=== PATIENT | male | born 1985 | race American Indian/Alaskan Native ===

== ENCOUNTER 2017-04-16 12:58 | Emergency (ER) | payer SELFPAY | END 2017-04-16 13:00 | disposition left against medical advice (07) | LOC: ED 12:58 | DX: M54.9 Dorsalgia, unspecified (principal); Z53.21 Procedure and treatment not carried out due to patient leaving prior to being seen by health care provider ==

== ENCOUNTER 2020-04-13 13:41 | Emergency (ER) | payer SELFPAY ==
--- NOTE | 2020-04-13 14:02 | Event Note ---
ED Screening Note Date of service: 04/13/20 Time: 14:01 ED Screening Note: The patient was evaluated in the emergency department for symptoms described in the history of present illness. He/she was evaluated in the context of the global COVID-19 pandemic, which necessitated consideration that the patient might be at risk for infection with the virus that causes COVID-19. Institutional protocols and algorithms that pertain to the evaluation of patients at risk for COVID-19 are in a state of rapid change based on information released by regulatory bodies including the CDC and federal and state organizations. These policies and algorithms were followed during the patient's care in the emergency department. Please note that these policies, procedures and recommendations changed on a rapid basis. 34-year-old -[place] male presents to the emergency room stating he needs a refill on his Lasix. Patient states that he has shortness of breath worse with lying down. Shortness of breath worse with exertion. Sometimes will have felt like he has fluid around his heart. Patient has a history of CHF severe hypertension homelessness. This initial assessment/diagnostic orders/clinical plan/treatment(s) is/are subject to change based on patients health status, clinical progression and re- assessment by fellow clinical providers in the ED. Further treatment and workup at subsequent clinical providers discretion. Patient/guardian urged not to elope from the ED as their condition may be serious if not clinically assessed and managed. Initial orders include:
[2020-04-13 14:05] VITALS: BP 166/128
[2020-04-13 15:53] LABS: Basophils # (Auto) 0.1 K/mm3 (0.0-0.1); Eosinophils % (Auto) 0.6 % (0.0-4.3); Hematocrit 40.2 % (35.5-45.6); Hemoglobin 12.7 gm/dl (11.8-15.2); Lymphocytes # (Auto) 1.3 K/mm3 (1.2-5.4); Lymphocytes % (Auto) 19.9 % (13.4-35.0); Mean Corpuscular HGB Conc 32 % (32-34); Mean Corpuscular Volume 80 fl (84-94); Monocytes # (Auto) 0.4 K/mm3 (0.0-0.8); Monocytes % (Auto) 6.6 % (0.0-7.3); Platelet Count 165 K/mm3 (140-440); Red Blood Count 5.02 M/mm3 (3.65-5.03)
[2020-04-13 16:07] LABS: Creatine Kinase MB 3.8 ng/mL (0.0-4.0)
[2020-04-13 16:09] LABS: INR 1.26 (0.87-1.13)
[2020-04-13 16:10] LABS: Partial Thromboplastin Time 28.4 Sec. (24.2-36.6)
[2020-04-13 16:12] LABS: BUN/Creatinine Ratio 8; Blood Urea Nitrogen 10 mg/dL (9-20); Calcium 9.1 mg/dL (8.4-10.2); Hemolysis Index 75
--- NOTE | 2020-04-13 16:28 | XRay Report ---
. XR chest 1V ap INDICATION / CLINICAL INFORMATION: hypertension COMPARISON: None available. FINDINGS: SUPPORT DEVICES: There is a loop recorder overlying the left chest. HEART / MEDIASTINUM: Cardiac silhouette is mildly prominent. LUNGS / PLEURA: Small lung volumes. Blunting left costophrenic sulcus. No pneumothorax. ADDITIONAL FINDINGS: No significant additional findings. IMPRESSION: 1. Mild cardiomegaly with a possible small left pleural effusion. Signer Name: Ck Baptiste MD Signed: 04/13/2020 4:23 PM Workstation Name: [id number]
--- NOTE | 2020-04-13 16:33 | Emergency Department Report ---
ED General Adult HPI - General Chief complaint: Dyspnea/Respdistress Stated complaint: MEDICATION REFILL Time Seen by Provider: 04/13/20 14:06 Source: patient Mode of arrival: Ambulatory Limitations: No Limitations - History of Present Illness Initial comments: This is a rather cooperative 34-year-old man who presented to the emergency department for dyspnea at rest on exertion and orthopnea. He is noncompliant with medical follow-up. Apparently he had an AICD placed at [facility] 2 months ago upon a 1 week hospitalization. He arrives at the hospital ambulatory demanding that we renew his Lasix. He initially did not allow blood draw. He never would allow an x-ray to be done. He did do an EKG which was of concern for possible hyperkalemia, atrial tachycardia and 2-1 block. He was found to be severely hypertensive. Patient claimed that he was taking his amlodipine. He repeatedly stated that he just wanted a prescription for Lasix and would leave. He was brought to my attention by triage nurse. I ordered an x-ray which he repeatedly refused. He refused to be placed on the monitor. Labs were ordered while the patient was in the waiting room. However the patient left has been returned. He admitted to the nurse that he was a heroin abuser. His behavior was erratic and uncooperative as well as consistent with possible substance abuse. However he was judged to have adequate mental capacity to refuse medical care. I did primary counselor the patient as to the need for laboratory testing and further evaluation to include x-ray as well as intravenous medications. He declined those interventions. He was awake alert and oriented x3 fully ambulatory. He did not even allow the nurse to feed his vital signs. -: days(s) Associated Symptoms: denies other symptoms, shortness of breath - Related Data Previous Rx's Medication Instructions Recorded Last Taken Type Furosemide [Lasix] 20 mg PO QDAY #30 tablet 04/13/20 Unknown Rx amLODIPine 5 mg PO DAILY #30 tab 04/13/20 Unknown Rx Allergies Allergy/AdvReac Type Severity Reaction Status Date / Time No Known Allergies Allergy Unverified 04/13/20 13:54 ED Review of Systems ROS: Stated complaint: MEDICATION REFILL Other details as noted in HPI Comment: Unobtainable due to pts medical conditions Constitutional: denies: chills, fever Eyes: denies: vision change ENT: denies: throat pain, epistaxis Respiratory: shortness of breath, SOB with exertion. denies: cough, wheezing Cardiovascular: denies: chest pain, palpitations Endocrine: no symptoms reported Gastrointestinal: denies: abdominal pain, nausea, diarrhea Genitourinary: denies: urgency, dysuria Musculoskeletal: denies: back pain, arthralgia Skin: denies: rash, lesions Neurological: denies: headache, weakness, paresthesias Psychiatric: denies: anxiety, depression Hematological/Lymphatic: denies: easy bleeding, easy bruising ED Past Medical Hx - Past Medical History Previous Medical History?: Yes Hx Hypertension: Yes Hx Congestive Heart Failure: Yes Hx Renal Disease: Yes (HD 2009) Additional medical history: Tricuspid valve damage - Surgical History Past Surgical History?: Yes Hx Internal Defibrillator: Yes Additional Surgical History: Pacemaker removed. AICD placement? - Social History Smoking Status: Current Every Day Smoker Substance Use Type: Alcohol, Heroin, Marijuana - Medications Home Medications: Home Medications Medication Instructions Recorded Confirmed Last Taken Type Furosemide [Lasix] 20 mg PO QDAY #30 tablet 04/13/20 Unknown Rx amLODIPine 5 mg PO DAILY #30 tab 04/13/20 Unknown Rx ED Physical Exam - General Limitations: Physical Limitation, Other (Poor patient cooperation) General appearance: alert, in no apparent distress - Head Head exam: Present: atraumatic, normocephalic - Eye Eye exam: Present: periorbital swelling (Periorbital edema). Absent: scleral icterus - ENT ENT exam: Present: mucous membranes moist - Neck Neck exam: Present: normal inspection. Absent: meningismus - Respiratory Respiratory exam: Present: normal lung sounds bilaterally. Absent: respiratory distress - Cardiovascular Cardiovascular Exam: Present: tachycardia - GI/Abdominal GI/Abdominal exam: Present: soft, normal bowel sounds. Absent: distended, tenderness, guarding - Extremities Exam Extremities exam: Present: other (1+ ankle edema bilaterally) - Neurological Exam Neurological exam: Present: CN II-XII intact, normal gait. Absent: motor sensory deficit - Skin Skin exam: Present: warm, dry, intact, normal color. Absent: rash ED Course Vital Signs 04/13/20 13:56 Temperature 98.4 F Pulse Rate 117 H Respiratory 16 Rate Blood Pressure 166/128 O2 Sat by Pulse 100 Oximetry ED Medical Decision Making - Lab Data Result diagrams: 04/13/20 15:35 04/13/20 15:35 Laboratory Results - last 24 hr 04/13/20 04/13/20 04/13/20 15:35 15:35 15:35 WBC 6.4 RBC 5.02 Hgb 12.7 Hct 40.2 MCV 80 L MCH 25 L MCHC 32 RDW 20.0 H Plt Count 165 Lymph % (Auto) 19.9 [place] % (Auto) 6.6 Eos % (Auto) 0.6 Baso % (Auto) 1.0 Lymph # (Auto) 1.3 [place] # (Auto) 0.4 Eos # (Auto) 0.0 Baso # (Auto) 0.1 Seg Neutrophils % 71.9 H Seg Neutrophils # 4.6 PT INR APTT Sodium Potassium Chloride Carbon Dioxide Anion Gap BUN Creatinine Estimated GFR BUN/Creatinine Ratio Glucose Calcium Total Creatine Kinase 125 CK-MB (CK-2) 3.8 CK-MB (CK-2) Rel Index 3.0 Troponin T < 0.010 NT-Pro-B Natriuret Pep 4096 H 04/13/20 04/13/20 15:35 15:35 WBC RBC Hgb Hct MCV MCH MCHC RDW Plt Count Lymph % (Auto) [place] % (Auto) Eos % (Auto) Baso % (Auto) Lymph # (Auto) [place] # (Auto) Eos # (Auto) Baso # (Auto) Seg Neutrophils % Seg Neutrophils # PT 16.0 H INR 1.26 H APTT 28.4 Sodium 134 L Potassium 4.5 Chloride 96.7 L Carbon Dioxide 20 L Anion Gap 22 BUN 10 Creatinine 1.3 Estimated GFR > 60 BUN/Creatinine Ratio 8 Glucose 105 H Calcium 9.1 Total Creatine Kinase CK-MB (CK-2) CK-MB (CK-2) Rel Index Troponin T NT-Pro-B Natriuret Pep Critical care attestation.: If time is entered above; I have spent that time in minutes in the direct care of this critically ill patient, excluding procedure time. ED Disposition Clinical Impression: Uncontrolled hypertension, Atrial tachycardia Acute on chronic congestive heart failure Qualifiers: Heart failure type: unspecified Qualified Code(s): I50.9 - Heart failure, unspecified Disposition: -07 LEFT AGAINST MED ADVICE Is pt being admited?: No Does the pt Need Aspirin: No Condition: Stable Instructions: Heart Failure (ED), Hypertension (ED) Additional Instructions: You had an abnormal heart rhythm. Your medical care was incomplete. You should take your medicine as prescribed and follow-up with your cardiology clinic at [facility] as soon as possible. I recommend additional emergency care which would require an IV and medication as well as an x-ray. You have refused these things. He was signed out AGAINST MEDICAL ADVICE. Prescriptions: amLODIPine 5 mg PO DAILY #30 tab Furosemide [Lasix] 20 mg PO QDAY #30 tablet Referrals: PRIMARY CARE, [Primary Care Provider] - 3-5 Days [facility] [Provider Group] - 24 Hours Forms: AMA Form Time of Disposition: 16:35
== END 2020-04-13 17:00 | disposition left against medical advice (07) ==
LOC: ED 13:41
DX: I11.0 Hypertensive heart disease with heart failure (principal); I50.9 Heart failure, unspecified; I47.1 Supraventricular tachycardia; F17.200 Nicotine dependence, unspecified, uncomplicated; F12.90 Cannabis use, unspecified, uncomplicated; F11.90 Opioid use, unspecified, uncomplicated; Z95.810 Presence of automatic (implantable) cardiac defibrillator; Z79.899 Other long term (current) drug therapy; Z76.0 Encounter for issue of repeat prescription
CPT/HCPCS: 36415; 71045; 80048; 82550; 82553; 83880; 84484; 85025; 85610; 85730; 93005

== ENCOUNTER 2020-05-10 16:48 | Observation (INO) | payer SELFPAY ==
--- NOTE | 2020-05-10 17:08 | Event Note ---
ED Screening Note ED Screening Note: Patient states that he has been out of his medications for 2 weeks He has associated shortness of breath, bilateral lower extremity edema, palpitations He denies any chest pain He states that he has a history of CHF States that he sees a plant engineering manager at [place] He states that he missed a couple of his appointments and that is why he does not have any medications Patient is tachycardic with elevated blood pressure Patient states that he just wanted a refill of his medications and did not want to have any test done Advised patient that he would need to sign out AGAINST MEDICAL ADVICE if he did not want to have a full medical evaluation Given his history and his vital signs, patient cannot be discharged with a refill of his medications He needs to have a work-up to rule out an emergent condition That appears that he is retaining fluid in his legs Patient states that he will stay and have the work-up done This initial assessment/diagnostic orders/clinical plan/treatment(s) is/are subject to change based on patients health status, clinical progression and re- assessment by fellow clinical providers in the ED. Further treatment and workup at subsequent clinical providers discretion. Patient/guardian urged not to elope from the ED as their condition may be serious if not clinically assessed and managed. Initial orders include: Labs, chest x-ray, EKG Patient be sent to the main ED for evaluation by
--- NOTE | 2020-05-10 17:31 | XRay Report ---
CHEST 2 VIEWS INDICATION / CLINICAL INFORMATION: SOB. COMPARISON: Chest x-ray 04/13/2020 FINDINGS: SUPPORT DEVICES: Leadless cardiac pacemaker, unchanged HEART / MEDIASTINUM: Cardiomegaly again noted with pulmonary venous hypertension LUNGS / PLEURA: No significant pulmonary or pleural abnormality. No pneumothorax. ADDITIONAL FINDINGS: No significant additional findings. IMPRESSION: 1. Cardiomegaly with pulmonary venous hypertension Signer Name: Donald Santoro MD Signed: 05/10/2020 5:27 PM Workstation Name: [id number]
[2020-05-10 17:59] LABS: Basophils % (Auto) 0.6 % (0.0-1.8); Eosinophils % (Auto) 0.4 % (0.0-4.3); Hematocrit 36.8 % (35.5-45.6); Hemoglobin 11.6 gm/dl (11.8-15.2); Lymphocytes # (Auto) 1.3 K/mm3 (1.2-5.4); Lymphocytes % (Auto) 18.2 % (13.4-35.0); Mean Corpuscular HGB Conc 32 % (32-34); Mean Corpuscular Volume 81 fl (84-94); Monocytes # (Auto) 0.7 K/mm3 (0.0-0.8); Monocytes % (Auto) 9.7 % (0.0-7.3); Platelet Count 155 K/mm3 (140-440); Red Blood Count 4.55 M/mm3 (3.65-5.03)
[2020-05-10 18:01] LABS: Alanine Aminotransferase 13 units/L (7-56); Albumin 3.1 g/dL (3.9-5); BUN/Creatinine Ratio 8; Blood Urea Nitrogen 11 mg/dL (9-20); Calcium 8.7 mg/dL (8.4-10.2); Hemolysis Index 35
[2020-05-11] MEDS ORDERED: FUROSEMIDE 40 MG/4 ML INJ IV ONE ×2 (00:08→04:04)
[2020-05-11] MEDS ORDERED: NITROGLYCERIN 2% OINT 1 GM TP ONE (00:09)
[2020-05-11] MEDS ORDERED: cloNIDine 0.2 MG TAB PO ONE (01:26)
[2020-05-11] MEDS ORDERED: FUROSEMIDE 20 MG TAB PO ONE (01:26)
--- NOTE | 2020-05-11 02:15 | Emergency Department Report ---
ED General Adult HPI - General Chief complaint: Dyspnea/Respdistress Stated complaint: BREATHING PROBLEM Time Seen by Provider: 05/11/20 00:04 Source: patient Mode of arrival: Ambulatory Limitations: No Limitations - History of Present Illness Initial comments: Patient is a 34-year-old F Scottish male with hypertension and congestive heart failure who is presenting with shortness of breath with exertion. Patient states he has been noncompliant with his medications for the past several weeks. Patient ran out. Patient states that with exertion and feels palpitations and gets very short of breath. With rest he feels much improved. There is no chest pain. Denies nausea vomiting diaphoresis fevers chills cough cold or congestion. Patient does have orthopnea when lying flat. - Related Data Previous Rx's Medication Instructions Recorded Last Taken Type Furosemide [Lasix] 20 mg PO QDAY #30 tablet 04/13/20 Unknown Rx amLODIPine 5 mg PO DAILY #30 tab 04/13/20 Unknown Rx Allergies Allergy/AdvReac Type Severity Reaction Status Date / Time No Known Allergies Allergy Unverified 04/13/20 13:54 ED Review of Systems ROS: Stated complaint: BREATHING PROBLEM Other details as noted in HPI Comment: All other systems reviewed and negative ED Past Medical Hx - Past Medical History Previous Medical History?: Yes Hx Hypertension: Yes Hx Congestive Heart Failure: Yes Hx Renal Disease: Yes (HD 2009) Additional medical history: Tricuspid valve damage - Surgical History Past Surgical History?: Yes Hx Internal Defibrillator: Yes Additional Surgical History: Pacemaker removed. AICD placement? - Social History Smoking Status: Current Every Day Smoker Substance Use Type: Alcohol, Marijuana, Prescribed - Medications Home Medications: Home Medications Medication Instructions Recorded Confirmed Last Taken Type Furosemide [Lasix] 20 mg PO QDAY #30 tablet 04/13/20 Unknown Rx amLODIPine 5 mg PO DAILY #30 tab 04/13/20 Unknown Rx ED Physical Exam - General Limitations: No Limitations General appearance: alert, in no apparent distress - Head Head exam: Present: atraumatic, normocephalic - Eye Eye exam: Present: normal appearance - ENT ENT exam: Present: mucous membranes moist - Neck Neck exam: Present: normal inspection - Respiratory Respiratory exam: Absent: normal lung sounds bilaterally, respiratory distress, wheezes, rales, rhonchi, stridor, chest wall tenderness - Cardiovascular Cardiovascular Exam: Present: regular rate, normal rhythm, normal heart sounds. Absent: systolic murmur, diastolic murmur, rubs, gallop - GI/Abdominal GI/Abdominal exam: Present: soft, normal bowel sounds. Absent: distended, tenderness, guarding, rebound - Rectal Rectal exam: Present: deferred - Extremities Exam Extremities exam: Present: normal inspection, other (+1 TROY to mid calf) - Back Exam Back exam: Present: normal inspection - Neurological Exam Neurological exam: Present: alert, oriented X3 - Psychiatric Psychiatric exam: Present: normal affect, normal mood - Skin Skin exam: Present: warm, dry, intact, normal color. Absent: rash ED Course Vital Signs 05/10/20 05/11/20 05/11/20 16:56 01:46 02:00 Temperature 98.3 F Pulse Rate 117 H 93 H Respiratory 20 13 Rate Blood Pressure 187/143 188/136 O2 Sat by Pulse 95 98 93 Oximetry 05/11/20 05/11/20 05/11/20 02:30 03:00 03:30 Temperature Pulse Rate 79 116 H 116 H Respiratory 13 13 14 Rate Blood Pressure 186/137 188/131 164/115 O2 Sat by Pulse 95 93 98 Oximetry - Reevaluation(s) Reevaluation #1: 05/11/20 04:03 At this time the patient is walked here in emergency department his O2 sat dropped into the 70s. Blood pressure had dropped down to 160 systolic after Catapres rebounded back to the 190s. He has not diuresed after 80 Lasix p.o. I was able to convince the patient to let me attempt ultrasound-guided IV chandni cement. Successful in putting IV in the brachial artery. Patient be given Lasix and labetalol will be admitted to the hospital for further management ED Medical Decision Making - Lab Data Result diagrams: 05/10/20 17:26 05/10/20 17:26 Lab Results 05/10/20 05/10/20 05/11/20 Range/Units 17:26 17: 00:19 WBC 7.2 (4.5-11.0) K/mm3 RBC 4.55 (3.65-5.03) M/mm3 Hgb 11.6 L (11.8-15.2) gm/dl Hct 36.8 (35.5-45.6) % MCV 81 L (84-94) fl MCH 26 L (28-32) pg MCHC 32 (32-34) % RDW 20.0 H (13.2-15.2) % Plt Count 155 (140-440) K/mm3 Lymph % (Auto) 18.2 (13.4-35.0) % [place] % (Auto) 9.7 H (0.0-7.3) % Eos % (Auto) 0.4 (0.0-4.3) % Baso % (Auto) 0.6 (0.0-1.8) % Lymph # (Auto) 1.3 (1.2-5.4) K/mm3 [place] # (Auto) 0.7 (0.0-0.8) K/mm3 Eos # (Auto) 0.0 (0.0-0.4) K/mm3 Baso # (Auto) 0.0 (0.0-0.1) K/mm3 Seg Neutrophils % 71.1 H (40.0-70.0) % Seg Neutrophils # 5.1 (1.8-7.7) K/mm3 Sodium 134 L (137-145) mmol/L Potassium 4.4 (3.6-5.0) mmol/L Chloride 98.6 (98-107) mmol/L Carbon Dioxide 25 (22-30) mmol/L Anion Gap 15 mmol/L BUN 11 (9-20) mg/dL Creatinine 1.3 (0.8-1.3) mg/dL Estimated GFR > 60 ml/min BUN/Creatinine Ratio 8 % Glucose 81 (75-100) mg/dL Calcium 8.7 (8.4-10.2) mg/dL Total Bilirubin 1.10 (0.1-1.2) mg/dL AST 38 (5-40) units/L ALT 13 (7-56) units/L Alkaline Phosphatase 249 H (35-129) units/L Troponin T < 0.010 < 0.010 (0.00-0.029) ng/mL NT-Pro-B Natriuret Pep 2593 H (0-450) pg/mL Total Protein 7.1 (6.3-8.2) g/dL Albumin 3.1 L (3.9-5) g/dL Albumin/Globulin Ratio 0.8 % - Radiology Data Chest x-ray shows cardiomegaly with pulmonary vascular congestion but no overt failure. - Medical Decision Making Attempted to give the patient IV blood pressure medications and Lasix however the after several attempts to get IV patient's refused any more attempts. Did tell the patient who could try ultrasound-guided placement but he refused. Patient would not lie flat for EJ. Patient was requesting to get pills for Lasix and blood pressure control. Patient is satting upper 90s on room air even when asleep. Patient again does not have overt failure on his chest x-ray. Pat gilda likely would do well with being restarted back on his medications and the patient can be discharged. Did give the patient 80 mg of Lasix to begin diuresing him and 0.2 of Catapres. Critical Care Time: Yes (30) Critical care attestation.: If time is entered above; I have spent that time in minutes in the direct care of this critically ill patient, excluding procedure time. ED Disposition Clinical Impression: Hypertensive urgency, malignant, Acute congestive heart failure, Hypoxia Disposition: DC-09 OP ADMIT IP TO THIS HOSP Is pt being admited?: Yes Does the pt Need Aspirin: No Condition: Stable Time of Disposition: 04:07
[2020-05-11] MEDS ORDERED: ACETAMINOPHEN 325 MG TAB PO PRN (04:17)
[2020-05-11] MEDS ORDERED: MORPHINE 2 MG/1 ML INJ IV PRN (04:17)
[2020-05-11] MEDS ORDERED: ONDANSETRON 4 MG/2 ML INJ IV PRN (04:17)
[2020-05-11] MEDS ORDERED: MAGNESIUM HYDROXIDE (MOM) ORAL LIQD UDC PO PRN (04:17)
--- NOTE | 2020-05-11 04:31 | History and Physical Report ---
History of Present Illness Date of examination: 05/11/20 Date of admission: 05/11/2020 Chief complaint: Shortness of Breath History of present illness: 34-year-old -[place] male with known history of hypertension and congestive heart failure presenting to the emergency room today complaining of shortness of breath. Shortness of breath is said to be worse on exertion. He denies any fever or chills, no chest pain, no nausea vomiting, no headache or dizziness.He has had some orthopnea. Patient states that he ran out of his medication a few weeks ago. Upon arrival in the emergency room blood pressure was quite elevated with systolic in the 180s and diastolic in the 140s and was given catapres with improvement. He was also hypoxic on exertion. Patient being admitted for congestive heart failure and hypertensive urgency. Past History Past Medical History: heart failure, hypertension, other (Tricuspid valve da mage) Past Surgical History: Other (Pacemaker/AICD placement and removal,Hemodialysis in 2009) Social history: smoking (Current daily smoker) Family history: no significant family history Medications and Allergies Allergies Allergy/AdvReac Type Severity Reaction Status Date / Time No Known Allergies Allergy Verified 05/11/20 04:32 Home Medications Medication Instructions Recorded Confirmed Last Taken Type Furosemide [Lasix] 20 mg PO QDAY #30 tablet 04/13/20 Unknown Rx amLODIPine 5 mg PO DAILY #30 tab 04/13/20 Unknown Rx Active Meds: Active Medications Acetaminophen (Tylenol) 650 mg PO Q4H PRN PRN Reason: Pain MILD(1-3)/Fever >100.5/KUMAR Furosemide (Lasix) 40 mg IV BID@0600,1800 DEYSI Heparin Sodium (Porcine) (Heparin) 5,000 unit SUB-Q Q8HR DEYSI Magnesium Hydroxide (Milk Of Magnesia) 30 ml PO Q4H PRN PRN Reason: Constipation Morphine Sulfate (Morphine) 2 mg IV Q4H PRN PRN Reason: Pain, Moderate (4-6) Ondansetron HCl (Zofran) 4 mg IV Q8H PRN PRN Reason: Nausea And Vomiting Sodium Chloride (Sodium Chloride Flush Syringe 10 Ml) 10 ml IV BID DEYSI Sodium Chloride (Sodium Chloride Flush Syringe 10 Ml) 10 ml IV PRN PRN PRN Reason: LINE FLUSH Review of Systems Constitutional: no fever, no chills Ears, nose, mouth and throat: no nasal congestion, no sore throat Cardiovascular: no chest pain, no palpitations Respiratory: shortness of breath, no cough Gastrointestinal: no abdominal pain, no nausea, no vomiting, no diarrhea Genitourinary Male: no dysuria, no hematuria, no nocturia Musculoskeletal: no neck pain, no low back pain Integumentary: no rash, no pruritis Neurological: no headaches, no confusion Psychiatric: no anxiety, no depression Exam - Constitutional Vitals: Temp Pulse Resp BP Pulse Ox 98.3 F 112 H 14 196/148 98 05/10/20 16:56 05/11/20 04:25 05/11/20 03:30 05/11/20 04:25 05/11/20 03:30 General appearance: Present: no acute distress, well-nourished - EENT Eyes: Present: PERRL, EOM intact. Absent: scleral icterus ENT: hearing intact, clear oral mucosa, dentition normal - Neck Neck: Present: supple, normal ROM - Respiratory Respiratory effort: normal Respiratory: bilateral: CTA - Cardiovascular Rhythm: regular Heart Sounds: Present: S1 & S2. Absent: gallop, systolic murmur, diastolic murmur, rub - Extremities Extremities: no ischemia, pulses intact, pulses symmetrical, Full ROM Extremity abnormal: edema (1+ Bilateral lower extremity edema) Peripheral Pulses: within normal limits - Abdominal General gastrointestinal: Present: soft, non-tender, non-distended, normal bowel sounds. Absent: mass - Integumentary Integumentary: Present: clear, warm, dry - Musculoskeletal Musculoskeletal: strength equal bilaterally - Psychiatric Psychiatric: appropriate mood/affect, intact judgment & insight, memory intact, cooperative - Neurologic Neurologic: CNII-XII intact, no focal deficits, moves all extremities HEART Score - HEART Score Troponin: Troponin T < 0.010 ng/mL (0.00-0.029) 05/11/20 00:19 Results - Labs CBC & Chem 7: 05/10/20 17:26 05/10/20 17:26 Labs: Abnormal lab results 05/10/20 05/10/20 Range/Units 17:26 17:26 Hgb 11.6 L (11.8-15.2) gm/dl MCV 81 L (84-94) fl MCH 26 L (28-32) pg RDW 20.0 H (13.2-15.2) % [place] % (Auto) 9.7 H (0.0-7.3) % Seg Neutrophils % 71.1 H (40.0-70.0) % Sodium 134 L (137-145) mmol/L Alkaline Phosphatase 249 H (35-129) units/L NT-Pro-B Natriuret Pep 2593 H (0-450) pg/mL Albumin 3.1 L (3.9-5) g/dL Assessment and Plan - Patient Problems (1) Acute congestive heart failure Current Visit: Yes Status: Acute Plan to address problem: Patient placed telemetry. Will monitor daily weight,input and outputs. Will check echocardiogram. (2) Hypertensive urgency, malignant Current Visit: Yes Status: Acute Plan to address problem: Will resume routine home medications. Will monitor vital signs (3) Hypoxia Current Visit: Yes Status: Acute Plan to address problem: Probably secondary to the CHF. Placed on Oxygen and will keep oxygen saturation greater than 92%. (4) DVT prophylaxis Current Visit: Yes Status: Acute (5) Full code status Current Visit: Yes Status: Acute
[2020-05-11] MEDS ORDERED: FUROSEMIDE 40 MG/4 ML INJ IV SCH (06:00)
[2020-05-11] MEDS ORDERED: HEPARIN 5,000 UNIT/1 ML VIAL SUB-Q SCH (06:00)
[2020-05-11] MEDS ORDERED: HEPARIN 5,000 UNIT/1 ML VIAL ONE (07:24)
[2020-05-11 08:51] VITALS: BP 131/100
[2020-05-11] MEDS ORDERED: NIFEdipine XL 60 MG TAB PO SCH (10:00)
[2020-05-11] MEDS ORDERED: LOSARTAN 50 MG TAB PO SCH (10:00)
--- NOTE | 2020-05-11 10:40 | Consultation ---
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 The patient reports that he has had significant or increasing shortness of breath with bilateral leg edema and an irregular heartbeat. He admits that he is not taking any of his medications for the past 2 weeks. Past History Past Medical History: heart failure, hypertension, other (Severe tricuspid regurgitation secondary to endocarditis) Past Surgical History: Other (Pacemaker/AICD placement and removal,Hemodialysis in 2009) Social history: smoking (Current daily smoker), IV drug use Family history: no significant family history Medications and Allergies Allergies Allergy/AdvReac Type Severity Reaction Status Date / Time No Known Allergies Allergy Verified 05/11/20 04:32 Home Medications Medication Instructions Recorded Confirmed Last Taken Type Furosemide [Lasix] 20 mg PO QDAY #30 tablet 04/13/20 Unknown Rx amLODIPine 5 mg PO DAILY #30 tab 04/13/20 Unknown Rx Active Meds: Active Medications Acetaminophen (Tylenol) 650 mg PO Q4H PRN PRN Reason: Pain MILD(1-3)/Fever >100.5/KUMAR Furosemide (Lasix) 40 mg IV BID@0600,1800 [facility] Last Admin: 05/11/20 05:42 Dose: Not Given Documented by: Heparin Sodium (Porcine) (Heparin) 5,000 unit SUB-Q Q8HR [facility] Last Admin: 05/11/20 07:42 Dose: 5,000 unit Documented by: Losartan Potassium (Cozaar) 100 mg PO QDAY [facility] Last Admin: 05/11/20 09:33 Dose: 100 mg Documented by: Magnesium Hydroxide (Milk Of Magnesia) 30 ml PO Q4H PRN PRN Reason: Constipation Morphine Sulfate (Morphine) 2 mg IV Q4H PRN PRN Reason: Pain, Moderate (4-6) Nifedipine (Procardia Xl) 60 mg PO QDAY [facility] Last Admin: 05/11/20 09:33 Dose: 60 mg Documented by: Ondansetron HCl (Zofran) 4 mg IV Q8H PRN PRN Reason: Nausea And Vomiting Sodium Chloride (Sodium Chloride Flush Syringe 10 Ml) 10 ml IV BID [facility]YSI Last Admin: 05/11/20 10:20 Dose: Not Given Documented by: Sodium Chloride (Sodium Chloride Flush Syringe 10 Ml) 10 ml IV PRN PRN PRN Reason: LINE FLUSH Review of Systems ROS unobtainable: due to mental status (I went to complete the consultation the patient stated that he was leaving and did not see the importance of completing the examination.) Physical Examination Vital Signs Temp Pulse Resp BP Pulse Ox 98.3 F 117 H 20 187/143 95 05/10/20 16:56 05/10/20 16:56 05/10/20 16:56 05/10/20 16:56 05/10/20 16:56 Narrative exam: The patient declined physical examination and stated that he planned on leaving the hospital. Results 05/10/20 17:26 05/10/20 17:26 Cardiac Enzymes 05/10/20 Range/Units 17:26 AST 38 (5-40) units/L CBC 05/10/20 Range/Units 17:26 WBC 7.2 (4.5-11.0) K/mm3 RBC 4.55 (3.65-5.03) M/mm3 Hgb 11.6 L (11.8-15.2) gm/dl Hct 36.8 (35.5-45.6) % Plt Count 155 (140-440) K/mm3 Lymph # (Auto) 1.3 (1.2-5.4) K/mm3 [place] # (Auto) 0.7 (0.0-0.8) K/mm3 Eos # (Auto) 0.0 (0.0-0.4) K/mm3 Baso # (Auto) 0.0 (0.0-0.1) K/mm3 Comprehensive Metabolic Panel 05/10/20 Range/Units 17:26 Sodium 134 L (137-145) mmol/L Potassium 4.4 (3.6-5.0) mmol/L Chloride 98.6 (98-107) mmol/L Carbon Dioxide 25 (22-30) mmol/L BUN 11 (9-20) mg/dL Creatinine 1.3 (0.8-1.3) mg/dL Glucose 81 (75-100) mg/dL Calcium 8.7 (8.4-10.2) mg/dL AST 38 (5-40) units/L ALT 13 (7-56) units/L Alkaline Phosphatase 249 H (35-129) units/L Total Protein 7.1 (6.3-8.2) g/dL Albumin 3.1 L (3.9-5) g/dL EKG interpretations - Telemetry EKG Rhythm: Atrial Flutter Assessment and Plan I went to complete the consultation however upon entering the room the patient stated that he had planned on leaving the hospital and did not want to proceed with the consultation. 34-year-old male PMH Endocarditis secondary to IV drug use Severe tricuspid regurgitation Tobacco use Hypertension CHF (no recent cardiac records) patient reports he sees cardiology in the [facility] 12/08/16: Normal RV and PA systolic pressures, elevated RA pressure with systolic pressure equal to that of the RV, severely reduced CO/CI 2.51/1.16 L/min PVR is 191.24 dynes per second per centimeter, 2.4 Wood units, right pulmonary angiogram consistent with presence of emboli ECHO 12/03/2016: EF 50%, severe SAKINA, mild LVH, severe TR, moderately reduced RV systolic function, severe RVE
--- NOTE | 2020-05-11 16:40 | Discharge Summary ---
Providers - Providers Date of Admission: 05/11/20 04:08 Date of discharge: 05/11/20 Attending physician: ISHA BUCK 05/11/20 04:17 Consult to Physician [CONS] Routine Comment: Consulting Provider: LINDA VALDES Physician Instructions: Reason For Exam: CHF exac, Hypertensive urgency Primary care physician: BOX STACKER Hospitalization Condition: Stable Hospital course: Patient 34-year-old male with a history of hypertension congestive heart failure presented with shortness of breath dyspnea on exertion and some orthopnea. Wright ve been going on for 2 weeks after he ran out of his medications. Presented to ED with hypertensive urgency 180/140 with pulmonary edema. Patient with a history of pacemaker AICD. Patient shortly after finding he was been admitted signed out AMA despite decompensated congestive heart failure and hypertensive emergency. Disposition: DC- LEFT AGAINST MED ADVICE Core Measure Documentation - Palliative Care Palliative Care/ Comfort Measures: Not Applicable - Core Measures Any of the following diagnoses?: none Exam - Constitutional Vitals: Temp Pulse Resp BP Pulse Ox 98.3 F 63 14 131/100 92 05/10/20 16:56 05/11/20 08:00 05/11/20 08:00 05/11/20 08:00 05/11/20 08:00 - Respiratory Respiratory: bilateral: diminished, rhonchi - Abdominal General gastrointestinal: Present: soft, non-tender, other (Ascites) - Neurologic Neurologic: other (Lower extremity edema) Plan Health Concerns: Patient signed out AMA. Forms: AMA Form
== END 2020-05-11 12:41 | disposition left against medical advice (07) ==
LOC: ED 16:48 → 4A 05-11 04:08
PROVIDERS: ADMIT Internal Medicine Geriatric Medicine; ATTEND Internal Medicine
DX: I16.0 Hypertensive urgency (principal); I11.0 Hypertensive heart disease with heart failure; I50.9 Heart failure, unspecified; I07.1 Rheumatic tricuspid insufficiency; I38 Endocarditis, valve unspecified; R09.02 Hypoxemia; F17.200 Nicotine dependence, unspecified, uncomplicated; Z95.0 Presence of cardiac pacemaker; Z99.2 Dependence on renal dialysis
CPT/HCPCS: 36415; 71046; 80053; 83880; 84484; 85025; 93005; 96372; 96374; 96375; 99291; G0378; J1644; J1940

== ENCOUNTER 2020-05-30 00:30 | Emergency (ER) | payer OTHER ==
[2020-05-30] MEDS ORDERED: ASPIRIN 325 MG TAB PO ONE (01:43)
[2020-05-30 02:36] LABS: Basophils % (Auto) 0.6 % (0.0-1.8); Eosinophils % (Auto) 0.4 % (0.0-4.3); Hematocrit 34.8 % (35.5-45.6); Hemoglobin 11.5 gm/dl (11.8-15.2); Lymphocytes # (Auto) 1.8 K/mm3 (1.2-5.4); Lymphocytes % (Auto) 20.7 % (13.4-35.0); Mean Corpuscular HGB Conc 33 % (32-34); Mean Corpuscular Volume 78 fl (84-94); Monocytes # (Auto) 0.9 K/mm3 (0.0-0.8); Monocytes % (Auto) 10.2 % (0.0-7.3); Platelet Count 200 K/mm3 (140-440); Red Blood Count 4.44 M/mm3 (3.65-5.03)
[2020-05-30 02:45] LABS: BUN/Creatinine Ratio 12; Blood Urea Nitrogen 19 mg/dL (9-20); Calcium 9.1 mg/dL (8.4-10.2); Hemolysis Index 3
[2020-05-30 02:52] LABS: INR 1.13 (0.87-1.13)
--- NOTE | 2020-05-30 03:00 | XRay Report ---
CHEST 1 VIEW INDICATION / CLINICAL INFORMATION: Chest Pain. COMPARISON: Chest radiograph 05/10/2020 FINDINGS: SUPPORT DEVICES: Left chest implanted loop recorder. HEART / MEDIASTINUM: Stable cardiomegaly. LUNGS / PLEURA: No significant pulmonary or pleural abnormality. No pneumothorax. ADDITIONAL FINDINGS: No significant additional findings. IMPRESSION: 1. No acute findings and no significant change. Signer Name: Mirian Helton MD Signed: 05/30/2020 2:56 AM Workstation Name: [id number]
[2020-05-30] MEDS ORDERED: METOPROLOL TARTRATE 5 MG/5 ML INJ IV ONE ×2 (07:00→10:20)
--- NOTE | 2020-05-30 07:04 | Emergency Department Report ---
ED General Adult HPI - General Chief complaint: Chest Pain Stated complaint: DIFFICULTY BREATHING Time Seen by Provider: 05/30/20 06:53 Source: patient Mode of arrival: Ambulatory Limitations: No Limitations - History of Present Illness Initial comments: Patient is a 34-year-old male with history of recurrent syncope status post loop recorder placement this past January who presents to the emergency department for evaluation of intermittent palpitations described as rapid heartbeat for the last 6 weeks. Patient states he presents today as episodes are becoming more frequent and worse with time. Patient states he is dyspneic during the episodes but not otherwise, denies chest pain, denies calf pain or swelling. Patient denies recent fever or illness, denies cough, denies abdominal pain, denies nausea vomiting diarrhea. Patient denies history of similar episodes. Severity scale (0 -10): 0 - Related Data Home Medications Medication Instructions Recorded Confirmed Last Taken Furosemide [Lasix] 40 mg PO QDAY 05/30/20 05/30/20 1 Day Ago ~05/29/20 40 amLODIPine 10 mg PO DAILY 05/30/20 05/30/20 1 Day Ago ~05/29/20 10 Allergies Allergy/AdvReac Type Severity Reaction Status Date / Time No Known Allergies Allergy Verified 05/11/20 04:32 ED Review of Systems ROS: Stated complaint: DIFFICULTY BREATHING Other details as noted in HPI Comment: All other systems reviewed and negative ED Past Medical Hx - Past Medical History Previous Medical History?: Yes Hx Hypertension: Yes Hx Congestive Heart Failure: Yes Hx Renal Disease: Yes (HD 2009) Additional medical history: Tricuspid valve damage. Sleep Apnea. Loop recorder s/p recurrent syncope. atrial fibrillation - Surgical History Past Surgical History?: Yes Hx Internal Defibrillator: Yes Additional Surgical History: Pacemaker removed. AICD placement? - Social History Smoking Status: Current Every Day Smoker Substance Use Type: None - Medications Home Medications: Home Medications Medication Instructions Recorded Confirmed Last Taken Type Furosemide [Lasix] 40 mg PO QDAY 05/30/20 05/30/20 1 Day Ago History ~05/29/20 40 amLODIPine 10 mg PO DAILY 05/30/20 05/30/20 1 Day Ago History ~05/29/20 10 ED Physical Exam - General Limitations: No Limitations General appearance: alert, in no apparent distress - Head Head exam: Present: atraumatic, normocephalic - Eye Eye exam: Present: normal appearance - ENT ENT exam: Present: mucous membranes moist - Neck Neck exam: Present: normal inspection - Respiratory Respiratory exam: Present: normal lung sounds bilaterally. Absent: respiratory distress - Cardiovascular Cardiovascular Exam: Present: normal rhythm, tachycardia, systolic murmur, diastolic murmur, other ((+) murmur). Absent: rubs, gallop - GI/Abdominal GI/Abdominal exam: Present: soft, normal bowel sounds - Rectal Rectal exam: Present: deferred - Extremities Exam Extremities exam: Present: normal inspection - Back Exam Back exam: Present: normal inspection - Neurological Exam Neurological exam: Present: alert, oriented X3 - Psychiatric Psychiatric exam: Present: normal affect, normal mood - Skin Skin exam: Present: warm, dry, intact, normal color. Absent: rash ED Course Vital Signs 05/30/20 05/30/20 05/30/20 01:47 07:25 07:30 Temperature 98 F Pulse Rate 116 H 114 H Respiratory 20 20 10 L Rate Blood Pressure 160/114 Blood Pressure 151/100 [Left] O2 Sat by Pulse 100 93 98 Oximetry 05/30/20 05/30/20 05/30/20 07:45 08:00 08:15 Temperature Pulse Rate 114 H 115 H 115 H Respiratory 13 13 12 Rate Blood Pressure 160/114 125/80 125/80 Blood Pressure [Left] O2 Sat by Pulse 99 99 100 Oximetry 05/30/20 05/30/20 05/30/20 08:30 08:45 09:00 Temperature Pulse Rate 116 H 116 H 115 H Respiratory 13 14 13 Rate Blood Pressure 151/105 151/105 124/106 Blood Pressure [Left] O2 Sat by Pulse 96 92 92 Oximetry 05/30/20 05/30/20 05/30/20 09:15 09:30 09:45 Temperature Pulse Rate 116 H 115 H 115 H Respiratory 16 10 L 10 L Rate Blood Pressure 124/106 143/96 143/96 Blood Pressure [Left] O2 Sat by Pulse 97 94 95 Oximetry 05/30/20 05/30/20 05/30/20 10:00 10:15 10:31 Temperature Pulse Rate 115 H 115 H 72 Respiratory 11 L 12 12 Rate Blood Pressure 152/121 152/121 159/109 Blood Pressure [Left] O2 Sat by Pulse 100 100 99 Oximetry 05/30/20 05/30/20 05/30/20 10:35 10:45 11:01 Temperature Pulse Rate 86 86 93 H Respiratory 15 10 L Rate Blood Pressure 142/85 159/109 117/73 Blood Pressure [Left] O2 Sat by Pulse 98 100 Oximetry 05/30/20 05/30/20 05/30/20 11:15 11:30 11:45 Temperature Pulse Rate 84 86 87 Respiratory 12 10 L 11 L Rate Blood Pressure 117/73 120/69 120/69 Blood Pressure [Left] O2 Sat by Pulse 99 99 99 Oximetry 05/30/20 13:11 Temperature Pulse Rate 89 Respiratory Rate Blood Pressure 142/82 Blood Pressure [Left] O2 Sat by Pulse Oximetry - Reevaluation(s) Reevaluation #1: 05/30/20 07:03 Patient initially treated with Lopressor 5 mg IV x1. Reevaluation #2: 05/30/20 13:24 While patient initially appeared to be in sinus tachycardia on both EKG and svp monetization, it becomes obvious with time patient rapid atrial fibrillation. Patient now confesses to history of same which she initially denied. Patient notes he has been noncompliant with his furosemide, amlodipine, and Xarelto. Patient expresses surprised to learn his symptoms are secondary to medication noncompliance. Patient refuses CTA chest, which is likely to be clinically inconsequential as D-dimer trivially elevated and patient anticoagulated for A. fib nonetheless. Reevaluation #3: 05/30/20 13:24 Following 2 g IV magnesium, Lopressor 5 mg IV x1. Patient with normal pulse and rate controlled A. fib. Patient normotensive, patient asymptomatic with upcoming cardiology visit. Patient refuses any further evaluation in the emergency department, however, now stable and asymptomatic with symptoms primarily secondary to medication noncompliance. Patient treated with metoprolol p.o. and Lovenox subcu to bridge until patient can get home and take his home medications, which he expresses understanding are necessary to take as prescribed beginning today. ED Medical Decision Making - Lab Data Result diagrams: 05/30/20 01:53 05/30/20 01:53 Lab Results 05/30/20 05/30/20 05/30/20 Range/Units 01:53 01:53 02:06 WBC 8.8 (4.5-11.0) K/mm3 RBC 4.44 (3.65-5.03) M/mm3 Hgb 11.5 L (11.8-15.2) gm/dl Hct 34.8 L (35.5-45.6) % MCV 78 L (84-94) fl MCH 26 L (28-32) pg MCHC 33 (32-34) % RDW 19.0 H (13.2-15.2) % Plt Count 200 (140-440) K/mm3 Lymph % (Auto) 20.7 (13.4-35.0) % [place] % (Auto) 10.2 H (0.0-7.3) % Eos % (Auto) 0.4 (0.0-4.3) % Baso % (Auto) 0.6 (0.0-1.8) % Lymph # (Auto) 1.8 (1.2-5.4) K/mm3 [place] # (Auto) 0.9 H (0.0-0.8) K/mm3 Eos # (Auto) 0.0 (0.0-0.4) K/mm3 Baso # (Auto) 0.0 (0.0-0.1) K/mm3 Seg Neutrophils % 68.1 (40.0-70.0) % Seg Neutrophils # 6.0 (1.8-7.7) K/mm3 PT 14.3 (12.2-14.9) Sec. INR 1.13 (0.87-1.13) D-Dimer (0-234) ng/mlDDU Sodium 133 L (137-145) mmol/L Potassium 4.4 (3.6-5.0) mmol/L Chloride 97.3 L (98-107) mmol/L Carbon Dioxide 22 (22-30) mmol/L Anion Gap 18 mmol/L BUN 19 (9-20) mg/dL Creatinine 1.6 H (0.8-1.3) mg/dL Estimated GFR 49 ml/min BUN/Creatinine Ratio 12 % Glucose 96 (75-100) mg/dL Calcium 9.1 (8.4-10.2) mg/dL Magnesium (1.7-2.3) mg/dL Troponin T < 0.010 (0.00-0.029) ng/mL NT-Pro-B Natriuret Pep (0-450) pg/mL TSH (0.270-4.200) mlU/mL Free T4 (0.76-1.46) ng/dL 05/30/20 05/30/20 05/30/20 Range/Units 02:06 02:06 05:23 WBC (4.5-11.0) K/mm3 RBC (3.65-5.03) M/mm3 Hgb (11.8-15.2) gm/dl Hct (35.5-45.6) % MCV (84-94) fl MCH (28-32) pg MCHC (32-34) % RDW (13.2-15.2) % Plt Count (140-440) K/mm3 Lymph % (Auto) (13.4-35.0) % [place] % (Auto) (0.0-7.3) % Eos % (Auto) (0.0-4.3) % Baso % (Auto) (0.0-1.8) % Lymph # (Auto) (1.2-5.4) K/mm3 [place] # (Auto) (0.0-0.8) K/mm3 Eos # (Auto) (0.0-0.4) K/mm3 Baso # (Auto) (0.0-0.1) K/mm3 Seg Neutrophils % (40.0-70.0) % Seg Neutrophils # (1.8-7.7) K/mm3 PT (12.2-14.9) Sec. INR (0.87-1.13) D-Dimer 496.03 H (0-234) ng/mlDDU Sodium (137-145) mmol/L Potassium (3.6-5.0) mmol/L Chloride (98-107) mmol/L Carbon Dioxide (22-30) mmol/L Anion Gap mmol/L BUN (9-20) mg/dL Creatinine (0.8-1.3) mg/dL Estimated GFR ml/min BUN/Creatinine Ratio % Glucose (75-100) mg/dL Calcium (8.4-10.2) mg/dL Magnesium (1.7-2.3) mg/dL Troponin T < 0.010 (0.00-0.029) ng/mL NT-Pro-B Natriuret Pep 2910 H (0-450) pg/mL TSH (0.270-4.200) mlU/mL Free T4 (0.76-1.46) ng/dL 05/30/20 05/30/20 05/30/20 Range/Units 05:23 05:23 07:50 WBC (4.5-11.0) K/mm3 RBC (3.65-5.03) M/mm3 Hgb (11.8-15.2) gm/dl Hct (35.5-45.6) % MCV (84-94) fl MCH (28-32) pg MCHC (32-34) % RDW (13.2-15.2) % Plt Count (140-440) K/mm3 Lymph % (Auto) (13.4-35.0) % [place] % (Auto) (0.0-7.3) % Eos % (Auto) (0.0-4.3) % Baso % (Auto) (0.0-1.8) % Lymph # (Auto) (1.2-5.4) K/mm3 [place] # (Auto) (0.0-0.8) K/mm3 Eos # (Auto) (0.0-0.4) K/mm3 Baso # (Auto) (0.0-0.1) K/mm3 Seg Neutrophils % (40.0-70.0) % Seg Neutrophils # (1.8-7.7) K/mm3 PT (12.2-14.9) Sec. INR (0.87-1.13) D-Dimer (0-234) ng/mlDDU Sodium (137-145) mmol/L Potassium (3.6-5.0) mmol/L Chloride (98-107) mmol/L Carbon Dioxide (22-30) mmol/L Anion Gap mmol/L BUN (9-20) mg/dL Creatinine (0.8-1.3) mg/dL Estimated GFR ml/min BUN/Creatinine Ratio % Glucose (75-100) mg/dL Calcium (8.4-10.2) mg/dL Magnesium 1.50 L (1.7-2.3) mg/dL Troponin T < 0.010 (0.00-0.029) ng/mL NT-Pro-B Natriuret Pep (0-450) pg/mL TSH 2.670 (0.270-4.200) mlU/mL Free T4 1.35 (0.76-1.46) ng/dL Vital Signs 05/30/20 05/30/20 05/30/20 01:47 07:25 07:30 Temperature 98 F Pulse Rate 116 H 114 H Respiratory 20 20 10 L Rate Blood Pressure 160/114 Blood Pressure 151/100 [Left] O2 Sat by Pulse 100 93 98 Oximetry 05/30/20 05/30/20 05/30/20 07:45 08:00 08:15 Temperature Pulse Rate 114 H 115 H 115 H Respiratory 13 13 12 Rate Blood Pressure 160/114 125/80 125/80 Blood Pressure [Left] O2 Sat by Pulse 99 99 100 Oximetry 05/30/20 05/30/20 05/30/20 08:30 08:45 09:00 Temperature Pulse Rate 116 H 116 H 115 H Respiratory 13 14 13 Rate Blood Pressure 151/105 151/105 124/106 Blood Pressure [Left] O2 Sat by Pulse 96 92 92 Oximetry 05/30/20 05/30/20 05/30/20 09:15 09:30 09:45 Temperature Pulse Rate 116 H 115 H 115 H Respiratory 16 10 L 10 L Rate Blood Pressure 124/106 143/96 143/96 Blood Pressure [Left] O2 Sat by Pulse 97 94 95 Oximetry 05/30/20 05/30/20 05/30/20 10:00 10:15 10:31 Temperature Pulse Rate 115 H 115 H 72 Respiratory 11 L 12 12 Rate Blood Pressure 152/121 152/121 159/109 Blood Pressure [Left] O2 Sat by Pulse 100 100 99 Oximetry 05/30/20 05/30/20 05/30/20 10:35 10:45 11:01 Temperature Pulse Rate 86 86 93 H Respiratory 15 10 L Rate Blood Pressure 142/85 159/109 117/73 Blood Pressure [Left] O2 Sat by Pulse 98 100 Oximetry 05/30/20 05/30/20 05/30/20 11:15 11:30 11:45 Temperature Pulse Rate 84 86 87 Respiratory 12 10 L 11 L Rate Blood Pressure 117/73 120/69 120/69 Blood Pressure [Left] O2 Sat by Pulse 99 99 99 Oximetry 05/30/20 13:11 Temperature Pulse Rate 89 Respiratory Rate Blood Pressure 142/82 Blood Pressure [Left] O2 Sat by Pulse Oximetry - EKG Data -: EKG Interpreted by Me (Sinus tachycardia at 115) EKG shows normal: sinus rhythm Rate: tachycardia - EKG Data Interpretation: nonspecific ST-T wave gus, other (Normal QRS) Critical care attestation.: If time is entered above; I have spent that time in minutes in the direct care of this critically ill patient, excluding procedure time. ED Disposition Clinical Impression: Atrial fibrillation with rapid ventricular response, Noncompliance with medication regimen Disposition: - TO HOME OR SELFCARE Is pt being admited?: No Condition: Stable Instructions: Atrial Fibrillation, [id number], Preventing Atrial Fib rillation-Related Stroke Additional Instructions: Follow-up with cardiology next week as scheduled. Please take all medications as prescribed, return to the emergency department for any recurrence of palpitations and/or development of chest pain or shortness of breath, and/or worsening symptoms. Referrals: PRIMARY CARE, [Primary Care Provider] - 3-5 Days
[2020-05-30] MEDS ORDERED: MAGNESIUM SULFATE 2 GM/50 ML BAG IV ONE ×2 (07:42→10:18)
[2020-05-30 08:01] LABS: Free T4 (Free Thyroxine) 1.35 ng/dL (0.76-1.46)
[2020-05-30] MEDS ORDERED: SODIUM CHLORIDE 0.9% 1000 ML 1,000 ML ONE (10:28)
[2020-05-30] MEDS ORDERED: ENOXAPARIN 80 MG/0.8 ML INJ SUB-Q ONE (12:25)
[2020-05-30] MEDS ORDERED: METOPROLOL TARTRATE 50 MG TAB PO ONE (12:25)
[2020-05-30 13:11] VITALS: BP 142/82
== END 2020-05-30 13:26 | disposition home or self-care (01) ==
LOC: ED 00:30
DX: I48.91 Unspecified atrial fibrillation (principal)
CPT/HCPCS: 36415; 71045; 80048; 83735; 83880; 84439; 84443; 84484; 85025; 85379; 85610; 93005; 96365; 96372; 96375; 99284; J1650; J3475; J7030

== ENCOUNTER 2020-05-31 19:55 | Emergency (ER) | payer SELFPAY ==
[2020-05-31 21:11] VITALS: BP 174/128
[2020-05-31] MEDS ORDERED: ASPIRIN 325 MG TAB PO ONE (21:23)
--- NOTE | 2020-05-31 22:49 | XRay Report ---
CHEST 1 VIEW, 05/31/2020 10:41 PM CLINICAL INFORMATION/INDICATION: Chest pain COMPARISON: Chest radiograph, 05/30/2020 at 2:20 AM FINDINGS: SUPPORT DEVICES: Cardiac recording device overlies the left chest. HEART: There is mild stable enlargement of the cardiac silhouette. LUNGS/PLEURA: There is no focal airspace consolidation or significant pleural effusion. ADDITIONAL FINDINGS: No additional acute findings. IMPRESSION: 1. Stable mild enlargement of the cardiac silhouette. Signer Name: Dorothea Lopez MD Signed: 05/31/2020 10:44 PM Workstation Name: [id number]
[2020-05-31 23:39] LABS: Basophils # (Auto) 0.1 K/mm3 (0.0-0.1); Basophils % (Auto) 0.7 % (0.0-1.8); Eosinophils # (Auto) 0.1 K/mm3 (0.0-0.4); Eosinophils % (Auto) 1.2 % (0.0-4.3); Hematocrit 34.4 % (35.5-45.6); Hemoglobin 11.2 gm/dl (11.8-15.2); Lymphocytes # (Auto) 1.6 K/mm3 (1.2-5.4); Lymphocytes % (Auto) 22.2 % (13.4-35.0); Mean Corpuscular HGB Conc 32 % (32-34); Mean Corpuscular Volume 78 fl (84-94); Monocytes # (Auto) 0.8 K/mm3 (0.0-0.8); Monocytes % (Auto) 11.4 % (0.0-7.3); Platelet Count 197 K/mm3 (140-440); Red Blood Count 4.43 M/mm3 (3.65-5.03)
[2020-05-31 23:58] LABS: BUN/Creatinine Ratio 16; Blood Urea Nitrogen 21 mg/dL (9-20); Calcium 9.4 mg/dL (8.4-10.2); Hemolysis Index 2
== END 2020-05-31 22:00 | disposition left against medical advice (07) ==
LOC: ED 19:55
DX: R06.00 Dyspnea, unspecified (principal); Z53.21 Procedure and treatment not carried out due to patient leaving prior to being seen by health care provider
CPT/HCPCS: 36415; 71045; 80048; 84484; 85025; 93005

== ENCOUNTER 2020-06-02 00:31 | Observation (INO) | payer SELFPAY ==
[2020-06-02 02:32] LABS: Basophils % (Auto) 0.5 % (0.0-1.8); Eosinophils % (Auto) 0.4 % (0.0-4.3); Hematocrit 35.5 % (35.5-45.6); Lymphocytes # (Auto) 1.3 K/mm3 (1.2-5.4); Lymphocytes % (Auto) 18.5 % (13.4-35.0); Mean Corpuscular HGB Conc 31 % (32-34); Mean Corpuscular Volume 79 fl (84-94); Monocytes # (Auto) 0.7 K/mm3 (0.0-0.8); Monocytes % (Auto) 10.2 % (0.0-7.3); Platelet Count 204 K/mm3 (140-440); Red Blood Count 4.48 M/mm3 (3.65-5.03); Red Cell Distribution Width 18.5 % (13.2-15.2)
--- NOTE | 2020-06-02 07:01 | XRay Report ---
CHEST 1 VIEW, 06/02/2020 5:54 AM CLINICAL INFORMATION/INDICATION: Shortness of breath COMPARISON: Chest radiograph, 05/31/2020 FINDINGS: SUPPORT DEVICES: Cardiac recording device overlies the left chest. HEART: There is stable enlargement of the cardiac silhouette LUNGS/PLEURA: No focal airspace consolidation or significant pleural effusion is seen. ADDITIONAL FINDINGS: No additional acute findings. IMPRESSION: 1. Stable enlargement of the cardiac silhouette. Signer Name: Dorothea Lopez MD Signed: 06/02/2020 6:57 AM Workstation Name: [id number]
[2020-06-02] MEDS ORDERED: FUROSEMIDE 40 MG/4 ML INJ IV ONE (07:25)
[2020-06-02 08:35] LABS: INR 1.16 (0.87-1.13)
[2020-06-02 08:36] LABS: Partial Thromboplastin Time 32.9 Sec. (24.2-36.6)
[2020-06-02] MEDS ORDERED: oxyCODONE /ACETAMINOPHEN 5-325MG TAB PO PRN (09:00)
[2020-06-02] MEDS ORDERED: ONDANSETRON 4 MG/2 ML INJ IV PRN (09:00)
[2020-06-02] MEDS ORDERED: hydrALAZINE 20 MG/1 ML INJ IV PRN (09:00)
[2020-06-02] MEDS ORDERED: ACETAMINOPHEN 325 MG TAB PO PRN (09:00)
[2020-06-02 09:10] LABS: Creatine Kinase MB 1.8 ng/mL (0.0-4.0)
[2020-06-02 09:12] LABS: Alanine Aminotransferase 17 units/L (7-56); Albumin 3.1 g/dL (3.9-5); Bilirubin,Direct 0.4 mg/dL (0-0.2)
--- NOTE | 2020-06-02 09:30 | Emergency Department Report ---
ED General Adult HPI - General Chief complaint: Dyspnea/Respdistress Stated complaint: SHORTNESS OF BREATH Time Seen by Provider: 06/02/20 06:36 Source: patient Mode of arrival: Ambulatory Limitations: No Limitations - History of Present Illness Initial comments: This is a 34-year-old male with a history of malignant hypertension, renal insufficiency and recent admission to [facility]. The patient is quite uncooperative with medical management. According to one of the nurses he admitted to using heroin yesterday. I do not know if this is accurate. However he does present with little if any peripheral access. He is refusing IV medi cation. He told me he would let the ultrasound/IV team nurse look for vein. However he refused IV placement by ultrasound with the nurse both before and after my counseling. Patient states that he is short of breath with exertion but not at rest. He states that he occasionally coughs but his phlegm is "normal". He denies a history of COVID-19 infection. Patient states "they did not give me enough Lasix at [place]". However, at the same time he admits to never feeling his discharge prescriptions. He is currently not taking any medication for his blood pressure or a diuretic. -: Gradual, days(s) Associated Symptoms: denies other symptoms, shortness of breath - Related Data Home Medications Medication Instructions Recorded Confirmed Last Taken Furosemide [Lasix] 40 mg PO QDAY 05/30/20 05/30/20 1 Day Ago ~05/29/20 40 amLODIPine 10 mg PO DAILY 05/30/20 05/30/20 1 Day Ago ~05/29/20 10 Allergies Allergy/AdvReac Type Severity Reaction Status Date / Time No Known Allergies Allergy Verified 05/11/20 04:32 ED Review of Systems ROS: Stated complaint: SHORTNESS OF BREATH Other details as noted in HPI Constitutional: denies: chills, fever Eyes: eye discharge. denies: eye pain, vision change ENT: denies: ear pain, throat pain Respiratory: shortness of breath, SOB with exertion. denies: cough, wheezing Cardiovascular: denies: chest pain, palpitations Endocrine: no symptoms reported Gastrointestinal: denies: abdominal pain, nausea, diarrhea Genitourinary: denies: urgency, dysuria Musculoskeletal: denies: back pain, joint swelling, arthralgia Skin: denies: rash, lesions Neurological: denies: headache, weakness, paresthesias Psychiatric: denies: anxiety, depression Hematological/Lymphatic: denies: easy bleeding, easy bruising ED Past Medical Hx - Past Medical History Hx Hypertension: Yes Hx Congestive Heart Failure: Yes Hx Renal Disease: Yes (HD 2009) Additional medical history: Tricuspid valve damage. Sleep Apnea. Loop recorder s/p recurrent syncope. atrial fibrillation - Surgical History Past Surgical History?: Yes Hx Internal Defibrillator: Yes Additional Surgical History: Pacemaker removed. AICD placement? - Social History Smoking Status: Current Every Day Smoker Substance Use Type: Alcohol, Heroin - Medications Home Medications: Home Medications Medication Instructions Recorded Confirmed Last Taken Type Furosemide [Lasix] 40 mg PO QDAY 05/30/20 05/30/20 1 Day Ago History ~05/29/20 40 amLODIPine 10 mg PO DAILY 05/30/20 05/30/20 1 Day Ago History ~05/29/20 10 ED Physical Exam - General Limitations: No Limitations General appearance: alert, in no apparent distress - Head Head exam: Present: atraumatic - Eye Eye exam: Absent: scleral icterus - Neck Neck exam: Absent: tenderness, meningismus - Respiratory Respiratory exam: Present: normal lung sounds bilaterally. Absent: respiratory distress - Cardiovascular Cardiovascular Exam: Present: regular rate, normal rhythm. Absent: systolic murmur, diastolic murmur, rubs, gallop - GI/Abdominal GI/Abdominal exam: Present: soft, normal bowel sounds. Absent: distended, tenderness - Extremities Exam Extremities exam: Present: normal inspection. Absent: calf tenderness - Back Exam Back exam: Present: normal inspection - Neurological Exam Neurological exam: Present: alert, oriented X3, CN II-XII intact. Absent: motor sensory deficit - Psychiatric Psychiatric exam: Present: normal affect, normal mood - Skin Skin exam: Present: warm, dry, intact, normal color. Absent: rash ED Course Vital Signs 06/02/20 06/02/20 05:00 06:00 Pulse Rate 115 H 113 H Respiratory 11 L 10 L Rate Blood Pressure 182/146 151/115 O2 Sat by Pulse 98 92 Oximetry - Reevaluation(s) Reevaluation #1: At this time the IV nurse is now being permitted to attempt placement. The patient has been admitted by the hospitalist service. 06/02/20 09:32 ED Medical Decision Making - Lab Data Result diagrams: 06/02/20 01:05 06/02/20 01:05 Laboratory Results - last 24 hr 06/02/20 06/02/20 06/02/20 01:05 01:05 07:56 WBC 6.9 RBC 4.48 Hgb 11.0 L Hct 35.5 MCV 79 L MCH 25 L MCHC 31 L RDW 18.5 H Plt Count 204 Lymph % (Auto) 18.5 [place] % (Auto) 10.2 H Eos % (Auto) 0.4 Baso % (Auto) 0.5 Lymph # (Auto) 1.3 [place] # (Auto) 0.7 Eos # (Auto) 0.0 Baso # (Auto) 0.0 Seg Neutrophils % 70.4 H Seg Neutrophils # 4.9 PT 14.8 INR 1.16 H APTT 32.9 Sodium 137 Potassium 5.2 H Chloride 100.8 Carbon Dioxide 23 Anion Gap 18 BUN 20 Creatinine 1.6 H Estimated GFR 49 BUN/Creatinine Ratio 13 Glucose 82 Calcium 9.0 Magnesium Total Bilirubin Direct Bilirubin Indirect Bilirubin AST ALT Alkaline Phosphatase Total Creatine Kinase CK-MB (CK-2) CK-MB (CK-2) Rel Index Troponin T NT-Pro-B Natriuret Pep Total Protein Albumin Albumin/Globulin Ratio 06/02/20 07:56 WBC RBC Hgb Hct MCV MCH MCHC RDW Plt Count Lymph % (Auto) [place] % (Auto) Eos % (Auto) Baso % (Auto) Lymph # (Auto) [place] # (Auto) Eos # (Auto) Baso # (Auto) Seg Neutrophils % Seg Neutrophils # PT INR APTT Sodium Potassium Chloride Carbon Dioxide Anion Gap BUN Creatinine Estimated GFR BUN/Creatinine Ratio Glucose Calcium Magnesium 1.60 L Total Bilirubin 0.80 Direct Bilirubin 0.4 H Indirect Bilirubin 0.4 AST 36 ALT 17 Alkaline Phosphatase 297 H Total Creatine Kinase 58 CK-MB (CK-2) 1.8 CK-MB (CK-2) Rel Index 3.1 Troponin T < 0.010 NT-Pro-B Natriuret Pep 2965 H Total Protein 7.6 Albumin 3.1 L Albumin/Globulin Ratio 0.7 - EKG Data -: EKG Interpreted by Me (EKG is yet pending. Nurse informed) - Radiology Data SUPPORT DEVICES: Cardiac recording device overlies the left chest. HEART: There is stable enlargement of the cardiac silhouette LUNGS/PLEURA: No focal airspace consolidation or significant pleural effusion is seen. ADDITIONAL FINDINGS: No additional acute findings. IMPRESSION: 1. Stable enlargement of the cardiac silhouette. Critical care attestation.: If time is entered above; I have spent that time in minutes in the direct care of this critically ill patient, excluding procedure time. ED Disposition Clinical Impression: Malignant hypertension, Hyperkalemia Chronic renal insufficiency, stage III (moderate) Qualifiers: Chronic kidney disease stage 3 subtype: stage 3a (GFR 45-59) Qualified Code(s): N18.31 - Chronic kidney disease, stage 3a Disposition: 09 OP ADMIT IP TO THIS HOSP Is pt being admited?: Yes Does the pt Need Aspirin: Yes Time of Disposition: 09:35
[2020-06-02] MEDS ORDERED: ASPIRIN 81 MG TAB CHEW PO SCH (10:00)
[2020-06-02] MEDS ORDERED: FUROSEMIDE 20 MG TAB PO SCH (10:00)
[2020-06-02] MEDS ORDERED: amLODIPine 10 MG TAB PO SCH (10:00)
[2020-06-02] MEDS ORDERED: HEPARIN 5,000 UNIT/1 ML VIAL SUB-Q SCH (10:00)
[2020-06-02] MEDS ORDERED: LORazepam 2 MG TAB PO PRN (10:44)
[2020-06-02 11:13] LABS: Bilirubin,Urine NEG (Negative); Blood,Urine NEG (Negative); Color,Urine Yellow (Yellow); Mucus,Urine FEW /HPF
[2020-06-02 11:14] LABS: Protein,Urine >500 mg/dL (Negative)
[2020-06-02] MEDS ORDERED: LORazepam 2 MG/ML VIAL IV PRN (11:30)
--- NOTE | 2020-06-02 11:39 | Consultation ---
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 He has been seen by our practice on one prior admission (which he left AMA prior to w/u) and reports he is regularly followed by [facility]. He presented with c/o "too much fluid on board". Pt reports progressively worsening SOB and BLE swelling. He admits to IV heroin use last night and states that he is a heavy ETOH drinker - he reports is afraid he is going to develop DTs today if he isn't "medicated". He is currently not taking any medication for his blood pressure or a diuretic. Admission ECG shows apparent new onset atrial flutter with HR 111bpm. Admission BP 182/146. tte done 11/2016 showed EF 50%, severely dilated RA, mild LVH, severe TR, mod reduced RV systolic function, severely enlarged RV cavity size. RHC done 11/2016 Normal RV and PA systolic pressures, Elevated RA pressure with systolic pressure equal to that in the RV, Severely reduced CO/CI. 2.51/1.16 liters/min, PVR is 191.24 [id number], 2.4 Wood units, Right pulmonary angiogram consistent with the presence of emboli. Past History Past Medical History: other (as per HPI) Social history: smoking, alcohol abuse, IV drug use Medications and Allergies Allergies Allergy/AdvReac Type Severity Reaction Status Date / Time No Known Allergies Allergy Verified 05/11/20 04:32 Home Medications Medication Instructions Recorded Confirmed Last Taken Type Furosemide [Lasix] 40 mg PO QDAY 05/30/20 05/30/20 1 Day Ago History ~05/29/20 40 amLODIPine 10 mg PO DAILY 05/30/20 05/30/20 1 Day Ago History ~05/29/20 10 Active Meds: Active Medications Acetaminophen (Acetaminophen 325 Mg Tab) 650 mg PO Q4H PRN PRN Reason: Pain MILD(1-3)/Fever >100.5/KUMAR Amlodipine Besylate (Amlodipine 10 Mg Tab) 10 mg PO DAILY DEYSI Last Admin: 06/02/20 10:27 Dose: 10 mg Documented by: Aspirin (Aspirin 81 Mg Tab Chew) 81 mg PO QDAY [facility] Last Admin: 06/02/20 10:28 Dose: 81 mg Documented by: Furosemide (Furosemide 20 Mg Tab) 40 mg PO QDAY [facility] Last Admin: 06/02/20 10:28 Dose: 40 mg Documented by: Heparin Sodium (Porcine) (Heparin 5,000 Unit/1 Ml Vial) 5,000 unit SUB-Q Q12HR [facility] Last Admin: 06/02/20 10:32 Dose: 5,000 unit Documented by: Hydralazine HCl (Hydralazine 20 Mg/1 Ml Inj) 10 mg IV Q4H PRN PRN Reason: Hypertension Lorazepam (Lorazepam 2 Mg/Ml Vial) 4 mg IV Q1HR PRN PRN Reason: CIWA-Ar 16-25 Lorazepam (Lorazepam 2 Mg Tab) 2 mg PO Q1HR PRN PRN Reason: CIWA-Ar 8-15 Ondansetron HCl (Ondansetron 4 Mg/2 Ml Inj) 4 mg IV Q8H PRN PRN Reason: Nausea And Vomiting Oxycodone/Acetaminophen (Oxycodone /Acetaminophen 5-325mg Tab) 1 tab PO Q6H PRN PRN Reason: Pain, Moderate (4-6) Sodium Chloride (Sodium Chloride 0.9% 10 Ml Flush Syringe) 10 ml IV BID [facility] Last Admin: 06/02/20 10:32 Dose: 10 ml Documented by: Sodium Chloride (Sodium Chloride 0.9% 10 Ml Flush Syringe) 10 ml IV PRN PRN PRN Reason: LINE FLUSH Review of Systems Constitutional: no weight loss, no fever, no chills, no sweats Ears, nose, mouth and throat: no ear pain, no nose pain, no sinus pressure, no sinus pain Cardiovascular: edema, shortness of breath, dyspnea on exertion, high blood pressure, leg edema, decreased exercise tolerance, no chest pain, no orthopnea, no palpitations, no rapid/irregular heart beat, no syncope, no lightheadedness Respiratory: cough, shortness of breath, dyspnea on exertion, no congestion, no wheezing, no pain on inspiration Gastrointestinal: no abdominal pain, no nausea, no vomiting, no diarrhea, no constipation, no change in bowel habits Genitourinary Male: no dysuria, no hematuria, no flank pain, no discharge, no urinary frequency, no urinary hesitancy Musculoskeletal: no neck stiffness, no neck pain, no shooting arm pain, no arm numbness/tingling, no low back pain, no shooting leg pain Integumentary: no rash, no pruritis, no redness, no sores, no wounds Neurological: no head injury, no paralysis, no weakness, no parathesias, no numbness, no tingling, no seizures, no syncope Psychiatric: no anxiety Endocrine: no cold intolerance, no heat intolerance Hematologic/Lymphatic: no easy bruising, no easy bleeding Allergic/Immunologic: no urticaria Physical Examination Vital Signs Pulse Resp BP Pulse Ox 115 H 11 L 182/146 98 06/02/20 05:00 06/02/20 05:00 06/02/20 05:00 06/02/20 05:00 General appearance: no acute distress HEENT: Positive: PERRL, Normocephaly, Mucus Membranes Moist Neck: Positive: neck supple, trachea midline Cardiac: Positive: irregularly irregular, S1/S2 Lungs: Positive: Decreased Breath Sounds Neuro: Positive: Grossly Intact Abdomen: Negative: Tender Skin: Negative: Rash Musculoskeletal: No Pain Extremities: Absent: edema Results 06/02/20 01:05 06/02/20 01:05 Cardiac Enzymes 06/02/20 Range/Units 07:56 AST 36 (5-40) units/L CK-MB (CK-2) 1.8 (0.0-4.0) ng/mL Coagulation 06/02/20 Range/Units 07:56 PT 14.8 (12.2-14.9) Sec. INR 1.16 H (0.87-1.13) APTT 32.9 (24.2-36.6) Sec. CBC 06/02/20 Range/Units 01:05 WBC 6.9 (4.5-11.0) K/mm3 RBC 4.48 (3.65-5.03) M/mm3 Hgb 11.0 L (11.8-15.2) gm/dl Hct 35.5 (35.5-45.6) % Plt Count 204 (140-440) K/mm3 Lymph # (Auto) 1.3 (1.2-5.4) K/mm3 [place] # (Auto) 0.7 (0.0-0.8) K/mm3 Eos # (Auto) 0.0 (0.0-0.4) K/mm3 Baso # (Auto) 0.0 (0.0-0.1) K/mm3 Comprehensive Metabolic Panel 06/02/20 06/02/20 Range/Units 01:05 07:56 Sodium 137 (137-145) mmol/L Potassium 5.2 H (3.6-5.0) mmol/L Chloride 100.8 (98-107) mmol/L Carbon Dioxide 23 (22-30) mmol/L BUN 20 (9-20) mg/dL Creatinine 1.6 H (0.8-1.3) mg/dL Glucose 82 (75-100) mg/dL Calcium 9.0 (8.4-10.2) mg/dL Direct Bilirubin 0.4 H (0-0.2) mg/dL Indirect Bilirubin 0.4 mg/dL AST 36 (5-40) units/L ALT 17 (7-56) units/L Alkaline Phosphatase 297 H (35-129) units/L Total Protein 7.6 (6.3-8.2) g/dL Albumin 3.1 L (3.9-5) g/dL - Imaging and Cardiology Echo: pending, report reviewed (11/2016 showed EF 50%, severely dilated RA, mild LVH, severe TR, mod reduced RV systolic function, severely enlarged RV cavity size. ) Cardiac cath: report reviewed (RHC done 11/2016 Normal RV and PA systolic pressures, Elevated RA pressure with systolic pressure equal to that in the RV, Severely reduced CO/CI. 2.51/1.16 liters/min, PVR is 191.24 [id number], 2.4 Wood units, Right pulmonary angiogram consistent with the presence of emboli. ) EKG: report reviewed, image reviewed EKG interpretations - Telemetry EKG Rhythm: Atrial Flutter - EKG Supraventricular dysrhythmia: atrial flutter Assessment and Plan Optimize HR - initiate IV amio and PO lopressor. Initiate heparin gtt in setting of AFlutter and consider conversion to OAC prior to hospital discharge. Initiate IV lasix and f/u BMP and Mg in AM. No ACEI/ARB at this time in setting of mild renal insufficiency. Obtain tte. Replete Mg. CIWA protocol per primary. Will follow. The patient has been seen in conjunction with Dr. Sid Ortiz who agrees with the assessment and plan of care. - Patient Problems (1) Acute heart failure Current Visit: Yes Status: Acute Plan to address problem: suspected CMP (2) Atrial flutter with rapid ventricular response Current Visit: Yes Status: Acute (3) History of endocarditis Current Visit: Yes Status: Chronic (4) Uncontrolled hypertension Current Visit: Yes Status: Chronic (5) Heroin abuse Current Visit: Yes Status: Chronic (6) Alcohol abuse Current Visit: Yes Status: Chronic (7) Tobacco use Current Visit: Yes Status: Chronic (8) Noncompliance with medication regimen Current Visit: Yes Status: Chronic (9) Hypomagnesemia Current Visit: Yes Status: Acute
[2020-06-02 11:55] LABS: Amphetamine Screen,Urine Negative; Cannabinoid Screen,Urine Negative; Methadone Screen,Urine Negative
[2020-06-02] MEDS ORDERED: HEPARIN 10,000 UNITS/10 ML VIAL IV PRN (11:59)
[2020-06-02] MEDS ORDERED: AMIODARONE 150 MG in DEXTROSE 5% IN WATER 97 ML IV ONE (11:59)
[2020-06-02] MEDS ORDERED: AMIODARONE 900 MG in DEXTROSE 5% IN WATER 482 ML IV SCH (12:00)
[2020-06-02 12:08] LABS: Benzodiazepines Screen,Urine PRESUMPTIVE POSITIVE; Cocaine Screen,Urine PRESUMPTIVE POSITIVE; Opiate Screen,Urine PRESUMPTIVE POSITIVE
[2020-06-02 12:12] VITALS: BP 162/129
[2020-06-02] MEDS ORDERED: SODIUM CHLORIDE 0.9% 500 ML 500 ML ONE (12:56)
[2020-06-02] MEDS ORDERED: HEPARIN 10,000 UNITS/10 ML VIAL IV ONE (12:59)
[2020-06-02] MEDS ORDERED: MAGNESIUM SULFATE 2 GM/50 ML BAG IV ONE (13:00)
--- NOTE | 2020-06-02 13:04 | History and Physical Report ---
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 Patient denies CP, hemoptysis, recent sicks contacts, recent exposure to COVID 19, weight loss, headache, vomiting, diarrhea, fevers, chills or loss of sense of taste/smell. He reports to be followed by [facility]. On presented with hypertensive urgency, elevated proBNP, CXR showed stable cardiomegaly. Upon reviewing prior admissions it was noted that the patient was in afib with RVR a couple days ago therefore RN was requested to complete an EKG. He received lasix 60mg, aspirin and labetalol in the ED. We consulted cardiology and initiated CIWA protocol. Patients EKG showed aflutter and cardiol ogy initiated heparin and amiodarone gtt.Advance care planning conducted in the ED, home medication reconciled and prior visits reviewed. Past History Past Medical History: atrial fib, heart failure, hypertension, pulmonary embolism, other (tricuspid regurg) Past Surgical History: No surgical history Social history: single, smoking, alcohol abuse, IV drug use, full code Family history: no significant family history Medications and Allergies Allergies Allergy/AdvReac Type Severity Reaction Status Date / Time No Known Allergies Allergy Verified 05/11/20 04:32 Home Medications Medication Instructions Recorded Confirmed Last Taken Type Furosemide [Lasix] 40 mg PO QDAY 05/30/20 05/30/20 1 Day Ago History ~05/29/20 40 amLODIPine 10 mg PO DAILY 05/30/20 05/30/20 1 Day Ago History ~05/29/20 10 Active Meds: Active Medications Acetaminophen (Acetaminophen 325 Mg Tab) 650 mg PO Q4H PRN PRN Reason: Pain MILD(1-3)/Fever >100.5/KUMAR Amlodipine Besylate (Amlodipine 10 Mg Tab) 10 mg PO DAILY DEYSI Last Admin: 12/14/20 10:27 Dose: 10 mg Documented by: Aspirin (Aspirin 81 Mg Tab Chew) 81 mg PO QDAY [facility] Last Admin: 06/02/20 10:28 Dose: 81 mg Documented by: Furosemide (Furosemide 40 Mg/4 Ml Inj) 40 mg IV QDAY DEYSI Heparin Sodium (Porcine) (Heparin 10,000 Units/10 Ml Vial) 3,100 unit 40 unit/kg (3100 unit) IV Q6H PRN PRN Reason: Anti-Xa Assay < 0.1 units/ml Amiodarone HCl 900 mg/ (Dextrose) 500 mls @ 33.333 mls/hr IV DIRECT DEYSI; Protocol Magnesium Sulfate (Magnesium Sulfate 2gm/50ml) 2 gm in 50 mls @ 25 mls/hr IV ONCE ONE Stop: 06/02/20 14:59 Lorazepam (Lorazepam 2 Mg/Ml Vial) 4 mg IV Q1HR PRN PRN Reason: CIWA-Ar 16-25 Lorazepam (Lorazepam 2 Mg Tab) 2 mg PO Q1HR PRN PRN Reason: CIWA-Ar 8-15 Metoprolol Tartrate (Metoprolol Tartrate 50 Mg Tab) 50 mg PO BID [facility] Ondansetron HCl (Ondansetron 4 Mg/2 Ml Inj) 4 mg IV Q8H PRN PRN Reason: Nausea And Vomiting Oxycodone/Acetaminophen (Oxycodone /Acetaminophen 5-325mg Tab) 1 tab PO Q6H PRN PRN Reason: Pain, Moderate (4-6) Sodium Chloride (Sodium Chloride 0.9% 10 Ml Flush Syringe) 10 ml IV BID [facility] Last Admin: 06/02/20 10:32 Dose: 10 ml Documented by: Sodium Chloride (Sodium Chloride 0.9% 10 Ml Flush Syringe) 10 ml IV PRN PRN PRN Reason: LINE FLUSH Review of Systems Constitutional: no weight loss, no weight gain, no fever, no chills, no sweats, no night sweats, no anorexia, no fatigue, no weakness, no malaise Ears, nose, mouth and throat: no ear pain, no ear discharge, no tinnitis, no decreased hearing, no nose pain, no nasal congestion, no nasal discharge, no sinus pressure, no sinus pain, no epistaxis, no bleeding gums, no dental pain, no mouth pain, no sore throat, no post-nasal drip, no headache Cardiovascular: orthopnea, palpitations, rapid/irregular heart beat, shortness of breath, dyspnea on exertion, high blood pressure, no chest pain, no lightheadedness, no leg edema Respiratory: cough, shortness of breath, no cough with sputum, no excessive sputum, no hemoptysis, no pain on inspiration, no sleep apnea Gastrointestinal: nausea, no abdominal pain, no vomiting, no diarrhea, no constipation, no change in bowel habits, no hematemesis, no coffee ground quinn sis, no BRBPR, no melena, no hematochezia Genitourinary Male: no dysuria, no hematuria, no flank pain, no discharge, no urinary frequency, no urinary hesitancy, no nocturia, no polyuria Rectal: no pain, no incontinence, no itching, no hemorrhoids Musculoskeletal: no neck stiffness, no neck pain, no shooting arm pain, no arm numbness/tingling, no low back pain, no shooting leg pain, no leg numbness/tingling, no frequent falls, no fractures Integumentary: no rash, no pruritis, no redness, no sores, no wounds, no jaundice Neurological: no head injury, no transient paralysis, no paralysis, no weakness, no parathesias, no numbness, no tingling, no seizures, no syncope, no tremors, no ataxia, no lack of coordination, no vertigo, no headaches, no memory loss, no changes in smell/taste, no sensory deficit Psychiatric: no anxiety, no memory loss, no change in sleep habits, no sleep disturbances, no hypersomnia, no change in appetite, no suicidal ideation, no difficulties concentrating Endocrine: no cold intolerance, no heat intolerance, no polyphagia, no excessive thirst, no polydipsia, no polyuria, no nocturia, no weight change, no increase in ring/shoe/hat size, no palpatations, no high blood sugars Hematologic/Lymphatic: no easy bruising, no easy bleeding Allergic/Immunologic: no urticaria, no allergic rhinitis, no wheezing, no persistent infections Exam - Constitutional Vitals: Temp Pulse Resp BP Pulse Ox 97.5 F L 113 H 18 162/129 97 06/02/20 11:58 06/02/20 11:58 06/02/20 11:58 12/14/20 11:58 06/02/20 11:58 General appearance: Present: no acute distress - EENT Eyes: Present: PERRL, EOM intact ENT: hearing intact, poor dentition - Neck Neck: Present: normal ROM - Respiratory Respiratory effort: normal Respiratory: bilateral: CTA - Cardiovascular Rhythm: irregularly irregular Heart Sounds: Present: S1 & S2, systolic murmur. Absent: diastolic murmur - Extremities Extremities: no ischemia, pulses intact, pulses symmetrical, No edema, normal temperature, normal color, Full ROM - Abdominal General gastrointestinal: Absent: soft, non-tender, non-distended, normal bowel sounds - Integumentary Integumentary: Absent: clear, warm, dry - Musculoskeletal Musculoskeletal: strength equal bilaterally - Psychiatric Psychiatric: appropriate mood/affect, cooperative - Neurologic Neurologic: CNII-XII intact, no focal deficits, moves all extremities - Allied Health Allied health notes reviewed: nursing HEART Score - HEART Score Troponin: Troponin T < 0.010 ng/mL (0.00-0.029) 06/02/20 07:56 Results - Labs CBC & Chem 7: 06/02/20 01:05 06/02/20 01:05 Labs: Laboratory Last Values WBC 6.9 K/mm3 (4.5-11.0) 06/02/20 01:05 RBC 4.48 M/mm3 (3.65-5.03) 06/02/20 01:05 Hgb 11.0 gm/dl (11.8-15.2) L 06/02/20 01:05 Hct 35.5 % (35.5-45.6) 06/02/20 01:05 MCV 79 fl (84-94) L 06/02/20 01:05 MCH 25 pg (28-32) L 06/02/20 01:05 MCHC 31 % (32-34) L 06/02/20 01:05 RDW 18.5 % (13.2-15.2) H 06/02/20 01:05 Plt Count 204 K/mm3 (140-440) 06/02/20 01:05 Lymph % (Auto) 18.5 % (13.4-35.0) 06/02/20 01:05 [place] % (Auto) 10.2 % (0.0-7.3) H 06/02/20 01:05 Eos % (Auto) 0.4 % (0.0-4.3) 06/02/20 01:05 Baso % (Auto) 0.5 % (0.0-1.8) 06/02/20 01:05 Lymph # (Auto) 1.3 K/mm3 (1.2-5.4) 06/02/20 01:05 [place] # (Auto) 0.7 K/mm3 (0.0-0.8) 06/02/20 01:05 Eos # (Auto) 0.0 K/mm3 (0.0-0.4) 06/02/20 01:05 Baso # (Auto) 0.0 K/mm3 (0.0-0.1) 06/02/20 01:05 Seg Neutrophils % 70.4 % (40.0-70.0) H 06/02/20 01:05 Seg Neutrophils # 4.9 K/mm3 (1.8-7.7) 06/02/20 01:05 PT 14.8 Sec. (12.2-14.9) 06/02/20 07:56 INR 1.16 (0.87-1.13) H 06/02/20 07:56 APTT 32.9 Sec. (24.2-36.6) 06/02/20 07:56 Sodium 137 mmol/L (137-145) 06/02/20 01:05 Potassium 5.2 mmol/L (3.6-5.0) H 06/02/20 01:05 Chloride 100.8 mmol/L (98-107) 06/02/20 01:05 Carbon Dioxide 23 mmol/L (22-30) 06/02/20 01:05 Anion Gap 18 mmol/L 06/02/20 01:05 BUN 20 mg/dL (9-20) 06/02/20 01:05 Creatinine 1.6 mg/dL (0.8-1.3) H 06/02/20 01:05 Estimated GFR 49 ml/min 06/02/20 01:05 BUN/Creatinine Ratio 13 % 06/02/20 01:05 Glucose 82 mg/dL (75-100) 06/02/20 01:05 Calcium 9.0 mg/dL (8.4-10.2) 06/02/20 01:05 Magnesium 1.60 mg/dL (1.7-2.3) L 06/02/20 07:56 Total Bilirubin 0.80 mg/dL (0.1-1.2) 06/02/20 07:56 Direct Bilirubin 0.4 mg/dL (0-0.2) H 06/02/20 07:56 Indirect Bilirubin 0.4 mg/dL 06/02/20 07:56 AST 36 units/L (5-40) 06/02/20 07:56 ALT 17 units/L (7-56) 06/02/20 07:56 Alkaline Phosphatase 297 units/L (35-129) H 06/02/20 07:56 Total Creatine Kinase 58 units/L (55-170) 06/02/20 07:56 CK-MB (CK-2) 1.8 ng/mL (0.0-4.0) 06/02/20 07:56 CK-MB (CK-2) Rel Index 3.1 (0-4) 06/02/20 07:56 Troponin T < 0.010 ng/mL (0.00-0.029) 06/02/20 07:56 NT-Pro-B Natriuret Pep 2965 pg/mL (0-450) H 06/02/20 07:56 Total Protein 7.6 g/dL (6.3-8.2) 06/02/20 07:56 Albumin 3.1 g/dL (3.9-5) L 06/02/20 07:56 Albumin/Globulin Ratio 0.7 % 06/02/20 07:56 Urine Color Yellow (Yellow) 06/02/20 10:45 Urine Turbidity Clear (Clear) 06/02/20 10:45 Urine pH 6.0 (5.0-7.0) 06/02/20 10:45 Ur Specific [place] 1.018 (1.003-1.030) 06/02/20 10:45 Urine Protein >500 mg/dL (Negative) 06/02/20 10:45 Urine Glucose (UA) Neg mg/dL (Negative) 06/02/20 10:45 Urine Ketones Neg mg/dL (Negative) 06/02/20 10:45 Urine Blood Neg (Negative) 06/02/20 10:45 Urine Nitrite Neg (Negative) 06/02/20 10:45 Urine Bilirubin Neg (Negative) 06/02/20 10:45 Urine Urobilinogen 4.0 mg/dL (<2.0) 06/02/20 10:45 Ur Leukocyte Esterase Neg (Negative) 06/02/20 10:45 Urine WBC (Auto) 1.0 /HPF (0.0-6.0) 06/02/20 10:45 Urine RBC (Auto) 1.0 /HPF (0.0-6.0) 06/02/20 10:45 Urine Mucus Few /HPF 06/02/20 10:45 Urine Opiates Screen Presumptive positive 06/02/20 10:45 Urine Methadone Screen Negative 06/02/20 10:45 Ur Barbiturates Screen Negative 06/02/20 10:45 Ur Phencyclidine Scrn Negative 06/02/20 10:45 Ur Amphetamines Screen Negative 06/02/20 10:45 U Benzodiazepines Scrn Presumptive positive 06/02/20 10:45 Urine Cocaine Screen Presumptive positive 06/02/20 10:45 U Marijuana (THC) Screen Negative 06/02/20 10:45 Drugs of Abuse Note Disclamer 06/02/20 10:45 Fernández/IV: IV Catheter Type [Right INT / Saline Lock Antecubital] Assessment and Plan - Patient Problems (1) Acute heart failure Current Visit: Yes Status: Acute Plan to address problem: - Presented with CANDELARIA - 06/02 proBNP 2965 - Cardiology consulted, appreciate recommendations - IV diuretics - Continue diuretic, BB - Cardiology scheduled for Echo in the AM - Per cardiology: tte done 11/2016 showed EF 50%, severely dilated RA, mild LVH, severe TR, mod reduced RV systolic function, severely enlarged RV cavity size. RHC done 11/2016 Normal RV and PA systolic pressures, Elevated RA pressure with systolic pressure equal to that in the RV, Severely reduced CO/CI. 2.51/1.16 liters/min, PVR is 191.24 [id number], 2.4 Wood units, Right pulmonary angiogram consistent with the presence of emboli. (2) Atrial flutter with rapid ventricular response Current Visit: Yes Status: Acute Plan to address problem: - Presented to ED a couple days ago with afib with RVR and ultimately left AMA - 06/02 ECG shows aflutter - Cardiology consulted, appreciate recommendations - Initiated on amiodorone and heprain gtt per cardio (3) Chronic renal insufficiency, stage III (moderate) Current Visit: Yes Status: Acute Qualifiers: Chronic kidney disease stage 3 subtype: stage 3a (GFR 45-59) Qualified Code(s): N18.31 - Chronic kidney disease, stage 3a Plan to address problem: - Presented with Cr 1.6 - Seems to be baseline - Avoid nephrotoxic medications - Strict I&O - Daily weights (4) Hyperkalemia Current Visit: Yes Status: Acute Plan to address problem: - Presented with K 5.2 - s/p 60mg lasix in ED - Trend BMP - Intervene as needed (5) Hypomagnesemia Current Visit: Yes Status: Acute Plan to address problem: - Presented with Mg 1.6 - Magnesium sulfate 2g - Trend Mg - Likely chronic in setting of chronic etoh abuse (6) Malignant hypertension Current Visit: Yes Status: Acute Plan to address problem: - Presented with BP 182/146 - s/p Labatalol and lasix in ED - Restarted home Norvasc - Cardio added BB - BP monitoring per protocol - PRN hydralizaine for SBP >160 (7) Alcohol abuse Current Visit: Yes Status: Chronic Plan to address problem: - Admited to 5-8 24oz liqueur intake daily for 7 years - [facility] protocol - Seizure precautions - Supportive care (8) Heroin abuse Current Visit: Yes Status: Chronic Plan to address problem: - Admitted to IV heroin use for 20 years - [facility] protocol - Supportive care (9) History of endocarditis Current Visit: Yes Status: Chronic (10) Noncompliance with medication regimen Current Visit: Yes Status: Chronic Plan to address problem: - Encouraged mediation compliance - CM consult (11) Tobacco use Current Visit: Yes Status: Chronic Plan to address problem: - Admits to 1 cig./day for 14 years - Tobacco cessation education - Consider TD nicoderm is needed (12) DVT prophylaxis Current Visit: No Status: Acute Plan to address problem: - Systemic anticoagulation with Heparin - SCDs to BLE while in bed (13) Full code status Current Visit: No Status: Acute
--- NOTE | 2020-06-02 13:44 | Discharge Summary ---
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 Patient denies CP, hemoptysis, recent sicks contacts, recent exposure to COVID 19, weight loss, headache, vomiting, diarrhea, fevers, chills or loss of sense of taste/smell. He reports to be followed by [facility]. On presented with hypertensive urgency, elevated proBNP, CXR showed stable cardiomegaly. Upon reviewing prior admissions it was noted that the patient was in afib with RVR a couple days ago therefore RN was requested to complete an EKG. He received lasix 60mg, aspirin and labetalol in the ED. We consulted cardiology and initiated CIWA protocol. Patients EKG showed aflutter and cardiology initiated heparin and amiodarone gtt. Advance care planning conducted in the ED, home medication reconciled and prior visits reviewed. He was admitted to the hospitalist service but her decided to leave AMA. - Patient Problems (1) Acute heart failure Current Visit: Yes Status: Acute Plan to address problem: - Presented with CANDELARIA - 06/02 proBNP 2965 - Cardiology consulted, appreciate recommendations - IV diuretics - Continue diuretic, BB - Cardiology scheduled for Echo in the AM - Per cardiology: tte done 11/2016 showed EF 50%, severely dilated RA, mild LVH, severe TR, mod reduced RV systolic function, severely enlarged RV cavity size. RHC done 11/2016 Normal RV and PA systolic pressures, Elevated RA pressure with systolic pressure equal to that in the RV, Severely reduced CO/CI. 2.51/1.16 liters/min, PVR is 191.24 [id number], 2.4 Wood units, Right pulmonary angiogram consistent with the presence of emboli. (2) Atrial flutter with rapid ventricular response Current Visit: Yes Status: Acute Plan to address problem: - Presented to ED a couple days ago with afib with RVR and ultimately left AMA - 06/02 ECG shows aflutter - Cardiology consulted, appreciate recommendations - Initiated on amiodorone and heprain gtt per cardio (3) Chronic renal insufficiency, stage III (moderate) Current Visit: Yes Status: chronic Qualifiers: Chronic kidney disease stage 3 subtype: stage 3a (GFR 45-59) Qualified Code(s): N18.31 - Chronic kidney disease, stage 3a Plan to address problem: - Presented with Cr 1.6 - Seems to be baseline - Avoid nephrotoxic medications - Strict I&O - Daily weights (4) Hyperkalemia Current Visit: Yes Status: Acute Plan to address problem: - Presented with K 5.2 - s/p 60mg lasix in ED - Trend BMP - Intervene as needed (5) Hypomagnesemia Current Visit: Yes Status: Acute Plan to address problem: - Presented with Mg 1.6 - Magnesium sulfate 2g - Trend Mg - Likely chronic in setting of chronic etoh abuse (6) Malignant hypertension Current Visit: Yes Status: Acute Plan to address problem: - Presented with BP 182/146 - s/p Labatalol and lasix in ED - Restarted home Norvasc - Cardio added BB - BP monitoring per protocol - PRN hydralizaine for SBP >160 (7) Alcohol abuse Current Visit: Yes Status: Chronic Plan to address problem: - Admited to 5-8 24oz liqueur intake daily for 7 years - [facility] protocol - Seizure precautions - Supportive care (8) Heroin abuse Current Visit: Yes Status: Chronic Plan to address problem: - Admitted to IV heroin use for 20 years - [facility] protocol - Supportive care (9) History of endocarditis Current Visit: Yes Status: Chronic (10) Noncompliance with medication regimen Current Visit: Yes Status: Chronic Plan to address problem: - Encouraged mediation compliance - CM consult (11) Tobacco use Current Visit: Yes Status: Chronic Plan to address problem: - Admits to 1 cig./day for 14 years - Tobacco cessation education - Consider TD nicoderm is needed (12) DVT prophylaxis Current Visit: No Status: Acute Plan to address problem: - Systemic anticoagulation with Heparin - SCDs to BLE while in bed (13) Full code status Current Visit: No Status: Acute Disposition: DC-07 LEFT AGAINST MED ADVICE Time spent for discharge: 35 Core Measure Documentation - Palliative Care Palliative Care/ Comfort Measures: Not Applicable - Core Measures Any of the following diagnoses?: history only Exam - Physical Exam Narrative exam: General appearance: Present: no acute distress - EENT Eyes: Present: PERRL, EOM intact ENT: hearing intact, poor dentition - Neck Neck: Present: normal ROM - Respiratory Respiratory effort: normal Respiratory: bilateral: CTA - Cardiovascular Rhythm: irregularly irregular Heart Sounds: Present: S1 & S2, systolic murmur. Absent: diastolic murmur - Extremities Extremities: no ischemia, pulses intact, pulses symmetrical, No edema, normal temperature, normal color, Full ROM - Abdominal General gastrointestinal: Absent: soft, non-tender, non-distended, normal bowel sounds - Integumentary Integumentary: Absent: clear, warm, dry - Musculoskeletal Musculoskeletal: strength equal bilaterally - Psychiatric Psychiatric: appropriate mood/affect, cooperative - Neurologic Neurologic: CNII-XII intact, no focal deficits, moves all extremities - Allied Health Allied health notes reviewed: nursing - Constitutional Vitals: Temp Pulse Resp BP Pulse Ox 97.5 F L 113 H 18 162/129 97 06/02/20 11:58 06/02/20 11:58 06/02/20 11:58 06/02/20 11:58 06/02/20 11:58 Plan Follow up with: ADA JONES MD [Primary Care Provider] - 7 Days <MARCK MONTALVO - Last Filed: 06/02/20 16:20> Providers - Providers Date of Admission: 06/02/20 08:34 Attending physician: MARCK MONTALVO MD 06/02/20 11:51 Consult to Cardiology [CONS] Routine Consulting Provider: PRIYA SANSD Reason For Exam: CHF Primary care physician: [facility] MD JAIMIE Hospitalization Hospital course: I saw and evaluated the patient. I agree with the findings and the plan of care as documented in the Nurse Practitioner's~note, with the following corrections and additions. Exam - Constitutional Vitals: Temp Pulse Resp BP Pulse Ox 97.5 F L 113 H 18 162/129 97 06/02/20 11:58 06/02/20 11:58 06/02/20 11:58 06/02/20 11:58 06/02/20 11:58
[2020-06-02] MEDS ORDERED: HEPARIN/ 0.45% NACL DRIP 25,000 UNIT/500 ML BAG IV SCH (14:00)
[2020-06-02] MEDS ORDERED: METOPROLOL TARTRATE 50 MG TAB PO SCH (22:00)
[2020-06-03] MEDS ORDERED: FUROSEMIDE 40 MG/4 ML INJ IV SCH (10:00)
== END 2020-06-02 17:21 | disposition left against medical advice (07) ==
LOC: ED 00:31 → 4A 08:34
PROVIDERS: ADMIT Internal Medicine; ATTEND Internal Medicine
DX: I13.0 Hypertensive heart and chronic kidney disease with heart failure and stage 1 through stage 4 chronic kidney disease, or unspecified chronic kidney disease (principal); I50.9 Heart failure, unspecified; N18.30 Chronic kidney disease, stage 3 unspecified; E11.22 Type 2 diabetes mellitus with diabetic chronic kidney disease; I48.92 Unspecified atrial flutter; I38 Endocarditis, valve unspecified; I07.1 Rheumatic tricuspid insufficiency; E87.5 Hyperkalemia; E83.42 Hypomagnesemia; G47.30 Sleep apnea, unspecified; F10.10 Alcohol abuse, uncomplicated; F11.10 Opioid abuse, uncomplicated; F17.200 Nicotine dependence, unspecified, uncomplicated; F17.210 Nicotine dependence, cigarettes, uncomplicated; Z91.14 Patient's other noncompliance with medication regimen; Z86.711 Personal history of pulmonary embolism; F14.10 Cocaine abuse, uncomplicated; Z79.899 Other long term (current) drug therapy; Z79.82 Long term (current) use of aspirin
CPT/HCPCS: 36415; 71045; 80048; 80076; 80307; 81001; 82550; 82553; 83735; 83880; 84484; 85025; 85610; 85730; 93005; 96372; 99285; G0378; J1644